=== PATIENT | male | born 1945 | race Caucasian/White ===

== ENCOUNTER 2019-03-14 08:08 | Inpatient (IN) | payer MEDICARE, OTHER ==
[2019-03-11 15:23] LABS: BASOPHILS # (AUTO) 0.1 (0.0-0.1); BASOPHILS % 1.3 % (0.0-1.0); EOSINOPHILS # (AUTO) 1.1 (0.0-0.4); EOSINOPHILS % 14.2 % (0.0-6.0); HEMATOCRIT 40.4 % (38.2-49.6); HEMOGLOBIN 13.9 g/dL (14.0-18.0); LYMPHOCYTES # (AUTO) 1.5 (1.0-3.2); LYMPHOCYTES % 20.5 % (18.0-39.1); MEAN CORPUSCULAR HEMOGLOBIN 30.2 pg (28-32); MEAN CORPUSCULAR HGB CONC 34.4 g/dL (31-35); MEAN CORPUSCULAR VOLUME 87.8 fL (81-99); MONOCYTES # (AUTO) 0.4 (0.2-0.8); MONOCYTES % 5.6 % (4.4-11.3); NEUTROPHILS # (AUTO) 4.3 (2.1-6.9); NEUTROPHILS % 58.1 % (38.7-80.0); PLATELET COUNT 232 x10e3/uL (140-360); RED CELL DISTRIBUTION WIDTH 11.9 % (11.7-14.4)
[2019-03-11 15:37] LABS: BLOOD UREA NITROGEN 12 mg/dL (7-26); BUN/CREATININE RATIO 12 (6-25); CALCIUM 9.4 mg/dL (8.4-10.2); CARBON DIOXIDE 22 mmol/L (22-29); CHLORIDE 104 mmol/L (98-107); CREATININE, SERUM 0.97 mg/dL (0.72-1.25); EST GLOMERULAR FILTRATION RATE > 60 ML/MIN (60-); GLUCOSE 82 mg/dL (74-118); SODIUM 138 mmol/L (136-145)
--- NOTE | 2019-03-11 15:56 | Diagnostic Imaging Report ---
EXAMINATION: CHEST 2 VIEWS INDICATION: Pre-operative COMPARISON: None FINDINGS: LINES/TUBES:None LUNGS:The lungs are hyperinflated. No focal consolidation or pulmonary edema. Scattered subcentimeter calcified granulomas. PLEURA:No pleural effusion or pneumothorax. MEDIASTINUM:The cardiomediastinal silhouette appears normal in size and shape. BONES/SOFT TISSUES:No acute osseous injury. ABDOMEN:No free air under the diaphragm. IMPRESSION: Hyperinflated lungs. No focal pneumonia or pulmonary edema. Signed by: Debi Fernández MD on 03/11/2019 3:53 PM
[~2019-03-14] VITALS: Ht 170.2 cm; Wt 54.4 kg
--- OUTSIDE RECORDS SUMMARY | 2019-03-14 08:11 | XMS REPORT ---
[facility] Address Unknown Phone Unavailable Care Team Providers Care Picture Framer Name Role Phone ZULMA, FANNY Unavailable Unavailable Payers Payer Name Policy Type Policy Number Effective Date Expiration Date Problems This patient has no known problems. Allergies, Adverse Reactions, Alerts Allergy Name Allergy Type Status Severity Reaction(s) Onset Date Inactive Date Treating Clinician Comments No Known Allergies DA Active U 2018-06-20 00:00:00 No Known Allergies DA Active U 2017-03-20 00:00:00 Medications This patient has no known medications. Encounters Start Date/Time End Date/Time Encounter Type Admission Type Attending Clinicians Care Facility Care Department Encounter ID 2018-09-05 13:29:45 2018-09-05 13:29:45 Outpatient [facility] [id number] 2018-09-03 01:34:52 2018-09-03 01:34:52 Emergency [facility] [id number] 2018-08-15 00:00:00 2018-08-15 00:00:00 Outpatient [facility] [id number] 2018-07-10 00:00:00 2018-07-10 00:00:00 Outpatient [facility] [id number] 2018-06-28 00:00:00 2018-06-28 00:00:00 Outpatient [facility] [id number] 2018-06-24 11:40:00 2018-06-24 11:40:00 Emergency [facility] [id number] Results Test Description Test Time Test Comments Text Results Atomic Results Result Comments CHEST 2 VIEWS 2019-03-11 15:53:00 [facility] [address] Patient Name: PATRICK CASIANO MR #: [id number] : 1945 Age/Sex: 73/M Req #: [id number] Adm Physician: Ordered by: FANNY MAYA MD Report #: [id number] Location: OR Room/Bed: Procedure: [id number] DX/CHEST 2 VIEWS Exam Date: 03/11/19 Exam Time: 1534 REPORT STATUS: Signed EXAMINATION: CHEST 2 VIEWS INDICATION: Pre-operative COMPARISON: None FINDINGS: LINES/TUBES:None LUNGS:The lungs are hyperinflated. No focal consolidation or pulmonary edema. Scattered subcentimeter calcified granulomas. PLEURA:No pleural effusion or pneumothorax. MEDIASTINUM:The cardiomediastinal silhouette appears normal in size and shape. BONES/SOFT TISSUES:No acute osseous injury. ABDOMEN:No free air under the diaphragm. IMPRESSION: Hyperinflated lungs. No focal pneumonia or pulmonary edema. Signed by: Gisselle Aviles MD on 03/11/2019 3:53 PM Dictated By: GISSELLE AVILES MD [id number] Transcribed By: NAHUN on 03/11/19 0469 COPY TO: FANNY MAYA MD URINALYSIS COMPLETE 2018-11-21 09:36:00 UA COLOR (test code=COLU) YELLOW YELLOW UA APPEARANCE (test code=APPU) TURBID CLEAR UA GLUCOSE DIPSTICK (test code=DGLUU) norm mg/dL NEGATIVE UA BILIRUBIN DIPSTICK (test code=BILU) NEGATIVE mg/dL NEGATIVE UA KETONE DIPSTICK (test code=KETU) neg mg/dL NEGATIVE UA SPECIFIC GRAVITY (test code=SGU) 1.015 1.001-1.035 UA BLOOD DIPSTICK (test code=MIKE) 250 (4+) Drew/uL NEGATIVE UA PH DIPSTICK (test code=LUIS) 7.0 5.0-8.0 UA PROTEIN DIPSTICK (test code=PROU) 100 (2+) mg/dL Neg-15 UA UROBILINIOGEN DIPSTICK (test code=URO) norm mg/dL 0.0-0.2 UA NITRITE DIPSTICK (test code=VILMA) NEGATIVE NEGATIVE UA LEUKOCYTE ESTERASE DIPSTICK (test code=LEUU) 500 Madelaine/uL (3+) uL NEGATIVE UA WBC (test code=WBCU) TNTC per HPF 0-5 UA RBC (test code=RBCU) 5-10 per HPF 0-5 UA EPITHELIAL CELLS (test code=EPIU) None seen per HPF Few UA BACTERIA (test code=BACU) LOADED per HPF NONE Urine Source? Clean CatchURINALYSIS [id number] 09:33:00* Test Item Value Reference Range Comments UA COLOR (test code=COLU) YELLOW YELLOW UA APPEARANCE (test code=APPU) TURBID CLEAR UA GLUCOSE DIPSTICK (test code=DGLUU) norm mg/dL NEGATIVE UA BILIRUBIN DIPSTICK (test code=BILU) NEGATIVE mg/dL NEGATIVE UA KETONE DIPSTICK (test code=KETU) neg mg/dL NEGATIVE UA SPECIFIC GRAVITY (test code=SGU) 1.015 1.001-1.035 UA BLOOD DIPSTICK (test code=MIKE) 250 (4+) Drew/uL NEGATIVE UA PH DIPSTICK (test code=LUIS) 7.0 5.0-8.0 UA PROTEIN DIPSTICK (test code=PROU) 100 (2+) mg/dL Neg-15 UA UROBILINIOGEN DIPSTICK (test code=URO) norm mg/dL 0.0-0.2 UA NITRITE DIPSTICK (test code=VILMA) NEGATIVE NEGATIVE UA LEUKOCYTE ESTERASE DIPSTICK (test code=LEUU) 500 Madelaine/uL (3+) uL NEGATIVE UA WBC (test code=WBCU) per HPF 0-5 UA RBC (test code=RBCU) per HPF 0-5 UA EPITHELIAL CELLS (test code=EPIU) per HPF Few UA BACTERIA (test code=BACU) per HPF NONE Urine Source? Clean CatchURINALYSIS [id number] 18:11:00* Test Item Value Reference Range Comments UA COLOR (test code=COLU) Light-Yellow YELLOW UA APPEARANCE (test code=APPU) Cloudy CLEAR UA GLUCOSE DIPSTICK (test code=DGLUU) NEGATIVE mg/dL NEGATIVE UA BILIRUBIN DIPSTICK (test code=BILU) NEGATIVE mg/dL NEGATIVE UA KETONE DIPSTICK (test code=KETU) TRACE mg/dL NEGATIVE UA SPECIFIC GRAVITY (test code=SGU) 1.014 1.001-1.035 UA BLOOD DIPSTICK (test code=MIKE) 0.2 mg/dL (2+) mg/dL NEGATIVE UA PH DIPSTICK (test code=LUIS) 6.0 5.0-8.0 UA PROTEIN DIPSTICK (test code=PROU) 10 (Trace) mg/dL NEGATIVE UA UROBILINIOGEN DIPSTICK (test code=URO) Normal mg/dL NEGATIVE UA NITRITE DIPSTICK (test code=VILMA) POSITIVE NEGATIVE UA LEUKOCYTE ESTERASE W REFLEX (test code=LEUUR) 500 Madelaine/uL (3+) Madelaine/uL NEGATIVE UA WBC (test code=WBCU) 101-150 per HPF 0-5 UA RBC (test code=RBCU) 21-50 #/HPF 0-5 UA WBC CLUMPS (test code=WBCUCL) >10 /HPF NONE UA EPITHELIAL CELLS (test code=EPIU) FEW per HPF FEW UA BACTERIA (test code=BACU) MODERATE #/HPF NONE UA MUCUS (test code=MUCU) FEW #/LPF FEW Urine Source? Clean CatchBASIC METABOLIC [id number] 15:36:00* Test Item Value Reference Range Comments SODIUM (test code=NA) 139 mmol/L 136-145 POTASSIUM (test code=K) 4.2 mmol/L 3.5-5.1 CHLORIDE (test code=CL) 105.0 mmol/L 98-107 CARBON DIOXIDE (test code=CO2) 25.0 mmol/L 21-32 ANION GAP (test code=GAP) 13.2 10-20 GLUCOSE (test code=GLU) 78 mg/dL 74-106 BLOOD UREA NITROGEN (test code=BUN) 19 mg/dL 7-18 GLOMERULAR FILTRATION RATE (test code=GFR) > 60 mL/min >=60 Estimated GFR by using Modified MDRD formula.Chronic kidney disease is defined as either kidney damageor GFR <60 mL/min/1.73 m2 for >3 months. CREATININE (test code=CREAT) 1.00 mg/dL 0.7-1.3 BUN/CREATININE RATIO (test code=BUN/CREA) 18.1 10-20 CALCIUM (test code=CA) 9.5 mg/dL 8.5-10.1 BASIC METABOLIC [id number] 15:20:00* Test Item Value Reference Range Comments SODIUM (test code=NA) 139 mmol/L 136-145 POTASSIUM (test code=K) 4.2 mmol/L 3.5-5.1 CHLORIDE (test code=CL) 105.0 mmol/L 98-107 CARBON DIOXIDE (test code=CO2) mmol/L 21-32 ANION GAP (test code=GAP) 10-20 GLUCOSE (test code=GLU) mg/dL 74-106 BLOOD UREA NITROGEN (test code=BUN) mg/dL 7-18 GLOMERULAR FILTRATION RATE (test code=GFR) mL/min >=60 CREATININE (test code=CREAT) mg/dL 0.7-1.3 BUN/CREATININE RATIO (test code=BUN/CREA) 10-20 CALCIUM (test code=CA) mg/dL 8.5-10.1 CBC W/O [id number] 15:06:00* Test Item Value Reference Range Comments WHITE BLOOD CELL (test code=WBC) 6.1 K/mm3 4.5-12.5 RED BLOOD CELL (test code=RBC) 4.40 mill/mm3 4.0-5.8 HEMOGLOBIN (test code=HGB) 13.4 gram/dL 13.0-17.5 HEMATOCRIT (test code=HCT) 39.9 % 42.0-52.0 MEAN CELL VOLUME (test code=MCV) 90.7 fL 80-98 MEAN CELL HGB (test code=MCH) 30.5 picogram 27.0-33.0 MEAN CELL HGB CONCETRATION (test code=MCHC) 33.6 gram/dL 33.0-36.0 RED CELL DISTRIBUTION WIDTH (test code=RDW) 13.2 % 11.6-16.2 PLATELET COUNT (test code=PLT) 174 K/mm3 150-450 MEAN PLATELET VOLUME (test code=MPV) 9.6 fL 6.7-11.0 CBC W/O [id number] 15:04:00* Test Item Value Reference Range Comments WHITE BLOOD CELL (test code=WBC) K/mm3 4.5-12.5 RED BLOOD CELL (test code=RBC) mill/mm3 4.0-5.8 HEMOGLOBIN (test code=HGB) 13.4 gram/dL 13.0-17.5 HEMATOCRIT (test code=HCT) % 42.0-52.0 MEAN CELL VOLUME (test code=MCV) fL 80-98 MEAN CELL HGB (test code=MCH) picogram 27.0-33.0 MEAN CELL HGB CONCETRATION (test code=MCHC) gram/dL 33.0-36.0 RED CELL DISTRIBUTION WIDTH (test code=RDW) % 11.6-16.2 PLATELET COUNT (test code=PLT) K/mm3 150-450 MEAN PLATELET VOLUME (test code=MPV) fL 6.7-11.0 BASIC METABOLIC [id number] 09:07:00* Test Item Value Reference Range Comments SODIUM (test code=NA) 140 mmol/L 136-145 POTASSIUM (test code=K) 3.3 mmol/L 3.5-5.1 CHLORIDE (test code=CL) 107.0 mmol/L 98-107 CARBON DIOXIDE (test code=CO2) 25.0 mmol/L 21-32 ANION GAP (test code=GAP) 11.3 10-20 GLUCOSE (test code=GLU) 71 mg/dL 74-106 BLOOD UREA NITROGEN (test code=BUN) 14 mg/dL 7-18 GLOMERULAR FILTRATION RATE (test code=GFR) > 60 mL/min >=60 Estimated GFR by using Modified MDRD formula.Chronic kidney disease is defined as either kidney damageor GFR <60 mL/min/1.73 m2 for >3 months. CREATININE (test code=CREAT) 0.80 mg/dL 0.7-1.3 BUN/CREATININE RATIO (test code=BUN/CREA) 16.5 10-20 CALCIUM (test code=CA) 8.5 mg/dL 8.5-10.1 BASIC METABOLIC [id number] 08:56:00* Test Item Value Reference Range Comments SODIUM (test code=NA) 140 mmol/L 136-145 POTASSIUM (test code=K) 3.3 mmol/L 3.5-5.1 CHLORIDE (test code=CL) 107.0 mmol/L 98-107 CARBON DIOXIDE (test code=CO2) mmol/L 21-32 ANION GAP (test code=GAP) 10-20 GLUCOSE (test code=GLU) mg/dL 74-106 BLOOD UREA NITROGEN (test code=BUN) mg/dL 7-18 GLOMERULAR FILTRATION RATE (test code=GFR) mL/min >=60 CREATININE (test code=CREAT) mg/dL 0.7-1.3 BUN/CREATININE RATIO (test code=BUN/CREA) 10-20 CALCIUM (test code=CA) mg/dL 8.5-10.1 CBC W/AUTO [id number] 08:16:00* Test Item Value Reference Range Comments WHITE BLOOD CELL (test code=WBC) 6.9 K/mm3 4.5-12.5 RED BLOOD CELL (test code=RBC) 4.09 mill/mm3 4.0-5.8 HEMOGLOBIN (test code=HGB) 12.1 gram/dL 13.0-17.5 HEMATOCRIT (test code=HCT) 35.7 % 42.0-52.0 MEAN CELL VOLUME (test code=MCV) 87.3 fL 80-98 MEAN CELL HGB (test code=MCH) 29.6 picogram 27.0-33.0 MEAN CELL HGB CONCETRATION (test code=MCHC) 33.9 gram/dL 33.0-36.0 RED CELL DISTRIBUTION WIDTH (test code=RDW) 11.9 % 11.6-16.2 RED CELL DISTRIBUTION WIDTH SD (test code=RDW-SD) 38.5 fL 37.0-51.0 PLATELET COUNT (test code=PLT) 230 K/mm3 150-450 MEAN PLATELET VOLUME (test code=MPV) 9.4 fL 6.7-11.0 NEUTROPHIL % (test code=NT%) 66.0 % 39.0-69.0 IMMATURE GRANULOCYTE % (test code=IG%) 1.3 % 0.0-5.0 LYMPHOCYTE % (test code=LY%) 14.6 % 25.0-55.0 MONOCYTE % (test code=MO%) 13.4 % 0.0-10.0 EOSINOPHIL % (test code=EO%) 4.6 % 0.0-5.0 BASOPHIL % (test code=BA%) 0.1 % 0.0-1.0 NUCLEATED RBC % (test code=NRBC%) 0.0 % 0-0 NEUTROPHIL # (test code=NT#) 4.56 K/mm3 1.8-7.7 IMMATURE GRANULOCYTE # (test code=IG#) 0.09 x10 3/uL 0-0.03 LYMPHOCYTE # (test code=LY#) 1.01 K/mm3 1.0-5.0 MONOCYTE # (test code=MO#) 0.93 K/mm3 0-0.8 EOSINOPHIL # (test code=EO#) 0.32 K/mm3 0.0-0.5 BASOPHIL # (test code=BA#) 0.01 K/mm3 0.0-0.2 NUCLEATED RBC # (test code=NRBC#) 0.00 K/mm3 0.0-0.1 MANUAL DIFF REQUIRED (test code=MDIFF) NO B-TYPE NATRIURETIC [id number] 09:19:00* Test Item Value Reference Range Comments B-TYPE NATRIURETIC PEPTIDE (test code=BNP) 121.86 pgram/mL 0-100 BASIC METABOLIC [id number] 08:05:00* Test Item Value Reference Range Comments SODIUM (test code=NA) 141 mmol/L 136-145 POTASSIUM (test code=K) 3.5 mmol/L 3.5-5.1 CHLORIDE (test code=CL) 110.0 mmol/L 98-107 CARBON DIOXIDE (test code=CO2) 22.0 mmol/L 21-32 ANION GAP (test code=GAP) 12.5 10-20 GLUCOSE (test code=GLU) 65 mg/dL 74-106 BLOOD UREA NITROGEN (test code=BUN) 22 mg/dL 7-18 GLOMERULAR FILTRATION RATE (test code=GFR) 54 mL/min >=60 Estimated GFR by using Modified MDRD formula.Chronic kidney disease is defined as either kidney damageor GFR <60 mL/min/1.73 m2 for >3 months. CREATININE (test code=CREAT) 1.30 mg/dL 0.7-1.3 BUN/CREATININE RATIO (test code=BUN/CREA) 17.3 10-20 CALCIUM (test code=CA) 8.8 mg/dL 8.5-10.1 BASIC METABOLIC [id number] 07:51:00* Test Item Value Reference Range Comments SODIUM (test code=NA) 141 mmol/L 136-145 POTASSIUM (test code=K) 3.5 mmol/L 3.5-5.1 CHLORIDE (test code=CL) 110.0 mmol/L 98-107 CARBON DIOXIDE (test code=CO2) mmol/L 21-32 ANION GAP (test code=GAP) 10-20 GLUCOSE (test code=GLU) mg/dL 74-106 BLOOD UREA NITROGEN (test code=BUN) mg/dL 7-18 GLOMERULAR FILTRATION RATE (test code=GFR) mL/min >=60 CREATININE (test code=CREAT) mg/dL 0.7-1.3 BUN/CREATININE RATIO (test code=BUN/CREA) 10-20 CALCIUM (test code=CA) mg/dL 8.5-10.1 CBC W/AUTO [id number] 07:38:00* Test Item Value Reference Range Comments WHITE BLOOD CELL (test code=WBC) 8.8 K/mm3 4.5-12.5 RED BLOOD CELL (test code=RBC) 4.35 mill/mm3 4.0-5.8 HEMOGLOBIN (test code=HGB) 13.0 gram/dL 13.0-17.5 HEMATOCRIT (test code=HCT) 38.3 % 42.0-52.0 MEAN CELL VOLUME (test code=MCV) 88.0 fL 80-98 MEAN CELL HGB (test code=MCH) 29.9 picogram 27.0-33.0 MEAN CELL HGB CONCETRATION (test code=MCHC) 33.9 gram/dL 33.0-36.0 RED CELL DISTRIBUTION WIDTH (test code=RDW) 12.2 % 11.6-16.2 RED CELL DISTRIBUTION WIDTH SD (test code=RDW-SD) 39.8 fL 37.0-51.0 PLATELET COUNT (test code=PLT) 218 K/mm3 150-450 MEAN PLATELET VOLUME (test code=MPV) 9.5 fL 6.7-11.0 NEUTROPHIL % (test code=NT%) 76.7 % 39.0-69.0 IMMATURE GRANULOCYTE % (test code=IG%) 1.0 % 0.0-5.0 LYMPHOCYTE % (test code=LY%) 10.7 % 25.0-55.0 MONOCYTE % (test code=MO%) 9.0 % 0.0-10.0 EOSINOPHIL % (test code=EO%) 2.3 % 0.0-5.0 BASOPHIL % (test code=BA%) 0.3 % 0.0-1.0 NUCLEATED RBC % (test code=NRBC%) 0.0 % 0-0 NEUTROPHIL # (test code=NT#) 6.76 K/mm3 1.8-7.7 IMMATURE GRANULOCYTE # (test code=IG#) 0.09 x10 3/uL 0-0.03 LYMPHOCYTE # (test code=LY#) 0.94 K/mm3 1.0-5.0 MONOCYTE # (test code=MO#) 0.79 K/mm3 0-0.8 EOSINOPHIL # (test code=EO#) 0.20 K/mm3 0.0-0.5 BASOPHIL # (test code=BA#) 0.03 K/mm3 0.0-0.2 NUCLEATED RBC # (test code=NRBC#) 0.00 K/mm3 0.0-0.1 CBC W/AUTO [id number] 07:32:00* Test Item Value Reference Range Comments WHITE BLOOD CELL (test code=WBC) K/mm3 4.5-12.5 RED BLOOD CELL (test code=RBC) mill/mm3 4.0-5.8 HEMOGLOBIN (test code=HGB) 13.0 gram/dL 13.0-17.5 HEMATOCRIT (test code=HCT) % 42.0-52.0 MEAN CELL VOLUME (test code=MCV) fL 80-98 MEAN CELL HGB (test code=MCH) picogram 27.0-33.0 MEAN CELL HGB CONCETRATION (test code=MCHC) gram/dL 33.0-36.0 RED CELL DISTRIBUTION WIDTH (test code=RDW) % 11.6-16.2 RED CELL DISTRIBUTION WIDTH SD (test code=RDW-SD) fL 37.0-51.0 PLATELET COUNT (test code=PLT) K/mm3 150-450 MEAN PLATELET VOLUME (test code=MPV) fL 6.7-11.0 NEUTROPHIL % (test code=NT%) % 39.0-69.0 IMMATURE GRANULOCYTE % (test code=IG%) % 0.0-5.0 LYMPHOCYTE % (test code=LY%) % 25.0-55.0 MONOCYTE % (test code=MO%) % 0.0-10.0 EOSINOPHIL % (test code=EO%) % 0.0-5.0 BASOPHIL % (test code=BA%) % 0.0-1.0 NEUTROPHIL # (test code=NT#) K/mm3 1.8-7.7 LYMPHOCYTE # (test code=LY#) K/mm3 1.0-5.0 MONOCYTE # (test code=MO#) K/mm3 0-0.8 EOSINOPHIL # (test code=EO#) K/mm3 0.0-0.5 BASOPHIL # (test code=BA#) K/mm3 0.0-0.2 - US RETRO [id number] 14:34:00 Name: PATRICK CASIANO [facility] : 1945 Age/S: 72 [facility] [address] [facility] Unit #: [id number] Loc: [place] [address] Phys: Gemma Jensen Acct: [id number] Dis Date: Status: ADM IN PHONE #: [phone] Exam Date: 09/07/2018 1400 FAX #: [phone] Reason: renal failure EXAMS: CPT CODE: [id number] US RETRO LTD [id number] REASON FOR EXAM: renal failure EXAM ORDER DATE: 09/07/2018 1:00 PM Attending Angelo: Gemma Jensen PROCEDURE: - US RETRO LTD FINDINGS: The right kidney measures 9.6 x 4.7 cm. The cross-sectional thickness of the right renal cortex measured 1.5 cm. The left kidney measures 9.6 x 5.2 cm. The cross- sectional thickness of the left renal cortex measured 1.4 cm. There is no evidence of hydronephrosis. There is no evidence of nephrolithiasis. The urinary bladder is contracted with a Feliciano catheter IMPRESSION: 1.7 cm solid lesion in the midpole of the left kidney at 1434 Reported and signed by: Ricky Arnett M.D. CC: Gemma Jensen; Radha Ag MD Technologist: ANNABELLA LUU RT(R),RDMS Trnscb Date/Time: 09/07/2018 (1432) [email or web address] Orig Print D/T: S: 09/07/2018 (7287) Probe: PAGE 1 Signed Report - CT ABD PELVIS W/O [id number] 03:31:00 Name: PATRICK CASIANO [facility] : 1945 Age/S: 72 / M [address] [facility] Unit #: [id number] Loc: [place] [address] Phys: Ehsan Green MD Acct: [id number] Dis Date: Status: ADM IN PHONE #: [phone] Exam Date: 09/07/2018 0240 FAX #: [phone] Reason: renal failure, urinary retention - replaced fol EXAMS: CPT CODE: [id number] CT ABD PELVIS W/O CONT [id number] AFTER HOURS SERVICE ON: 09/07/2018 3:[address] Scan of the Abdomen and Pelvis Without Contrast Location Code M12 History: renal failure, urinary retention - replaced feliciano Technique: Axial and reconstructed coronal scans were performed on a helical scanner pre oral and IV contrast. Study is limited secondary to lack of oral and IV contrast. One or more of the following dose reduction techniques were used: Automated exposure control, adjustment of the mA and/or kV according to patient si ze, and/or utilization of iterative reconstruction technique. Findings: Study is limited without IV contrast. Liver, gallbla dder, pancreas and spleen are within normal limits. Adrenal glands are th ickened, likely hyperplastic. There is no nephrolithiasis or hydronephros is in the right kidney. In the left kidney, there is mild edema, pe rinephric stranding and hydroureter but no renal or ureteral calculi are s een. There is a Feliciano catheter in the bladder. Few air pockets are seen in the bladder lumen. The bladder is mostly decompressed. Multiple hyper densities are seen layering in the posterior bladder adjacent the right UV J. These were not present on 06/14/2018. A consistent with recent contras t injection or possibly calcified hemorrhagic fluid. Copious amount of air and stool present in the colon. The rectum is dilated rossana uring 7.6 cm containing large amount of air. These findings are consisten t with colonic ileus. The appendix is unremarkable. There is no small geni wel structure or free air. IMPRESSION: Mild le ft renal edema and hydroureter without evidence of a ureteral calculus. Findings may be consistent with a recently passed calculus or possibly pyelonephritis. Multiple layering calcifications in the driveway attendant ior bladder. Differential diagnosis includes recent contrast injection versus calcified hemorrhagic fluid. PAGE 1 Si gned Report (CONTINUED) Name: PATRICK CASIANO [facility] : 1945 Age/S: 72 / M [address] [facility] Unit #: [id number] Loc: [place] [address] Phys: Ehsan Green MD Acct: [id number] Dis Date: Status: ADM IN PHONE #: [phone] Exam Date: 09/07/2018 0240 FAX #: [phone] Reason: renal failure, urinary retention - replaced fol EXAMS: CPT CODE: [id number] CT ABD PELVIS W/O CONT [id number] <Continued> Copious amount of air and stool in the colon and a dilated rectum. These findings may be consistent with colonic ileus. No free or inflammatory changes. at 0331 Reported and signed by: Taryn Lindquist M.D. CC: Ehsan Green MD Technologist:Stewart Car RT(R)(CT) CTDI: DLP: Trnscb Date/Time: 09/07/2018 (033) [email or web address] Orig Print D/T: S: 09/07/2018 (0334) PAGE 2 Signed Report LACTIC [id number] 02:46:00* Test Item Value Reference Range Comments LACTIC ACID (test code=LACT) 1.3 mmol/L 0.4-1.9 PROCALCITONIN (PCT)2018-09-07 02:46:00* Test Item Value Reference Range Comments PROCALCITONIN (PCT) (test code=PROCAL) 0.26 ng/ml Concentration Interpretation (ng/mL) <0.51 Sepsis is not likely. Local bacterial infection is possible. (LOW RISK for progression to Sepsis) 0.51 - 2.00 Sepsis is possible, but other conditions are known to elevate PCT as well. (MODERATE RISK for progression to Sepsis) > 2.00 Sepsis is likely, unless other causes are known. (HIGH RISK for progression to Severe Sepsis or Septic Shock) 10.00 High likelihood of Severe Sepsis or Septic or higher Shock. *Increased PCT levels may not always be related to systemic bacterial infection.*Low PCT levels do not automatically exclude the presence of bacterial infection.*All results should be interpreted taking into account the patients history. URINALYSIS [id number] 02:42:00* Test Item Value Reference Range Comments UA COLOR (test code=COLU) YELLOW YELLOW UA APPEARANCE (test code=APPU) TURBID CLEAR UA GLUCOSE DIPSTICK (test code=DGLUU) NEGATIVE mg/dL NEGATIVE UA BILIRUBIN DIPSTICK (test code=BILU) NEGATIVE NEGATIVE UA KETONE DIPSTICK (test code=KETU) 10 (1+) mg/dL NEGATIVE UA SPECIFIC GRAVITY (test code=SGU) 1.015 1.001-1.035 UA BLOOD DIPSTICK (test code=MIKE) 250 (4+) NEGATIVE UA PH DIPSTICK (test code=LUIS) 7.5 5.0-8.0 UA PROTEIN DIPSTICK (test code=PROU) 100 (2+) mg/dL Neg-15 UA UROBILINIOGEN DIPSTICK (test code=URO) NORMAL mg/dL 0.0-0.2 UA NITRITE DIPSTICK (test code=VILMA) NEGATIVE NEGATIVE UA LEUKOCYTE ESTERASE W REFLEX (test code=LEUUR) 500 Madelaine/uL (3+) NEGATIVE UA WBC (test code=WBCU) >200 per HPF 0-5 UA RBC (test code=RBCU) 3-5 per HPF 0-5 UA EPITHELIAL CELLS (test code=EPIU) Few (2-5/hpf) per HPF Few UA BACTERIA (test code=BACU) TRACE per HPF NONE UA MUCUS (test code=MUCU) FEW per LPF NONE-FEW Urine Source? CatheterURINALYSIS [id number] 02:28:00* Test Item Value Reference Range Comments UA COLOR (test code=COLU) YELLOW YELLOW UA APPEARANCE (test code=APPU) TURBID CLEAR UA GLUCOSE DIPSTICK (test code=DGLUU) NEGATIVE mg/dL NEGATIVE UA BILIRUBIN DIPSTICK (test code=BILU) NEGATIVE NEGATIVE UA KETONE DIPSTICK (test code=KETU) 10 (1+) mg/dL NEGATIVE UA SPECIFIC GRAVITY (test code=SGU) 1.015 1.001-1.035 UA BLOOD DIPSTICK (test code=MIKE) 250 (4+) NEGATIVE UA PH DIPSTICK (test code=LUIS) 7.5 5.0-8.0 UA PROTEIN DIPSTICK (test code=PROU) 100 (2+) mg/dL Neg-15 UA UROBILINIOGEN DIPSTICK (test code=URO) NORMAL mg/dL 0.0-0.2 UA NITRITE DIPSTICK (test code=VILMA) NEGATIVE NEGATIVE UA LEUKOCYTE ESTERASE W REFLEX (test code=LEUUR) 500 Madelaine/uL (3+) NEGATIVE UA WBC (test code=WBCU) per HPF 0-5 UA RBC (test code=RBCU) per HPF 0-5 UA EPITHELIAL CELLS (test code=EPIU) per HPF Few UA BACTERIA (test code=BACU) per HPF NONE Urine Source? CatheterARTERIAL BLOOD [id number] 01:59:00* Test Item Value Reference Range Comments ARTERIAL BLOOD GAS PH (test code=PHA) 7.43 7.35-7.45 ARTERIAL BLOOD GAS PCO2 (test code=PCO2A) 22.7 mm Hg 35-45 Results called to and read back by Kay Laguerre :58 09/07/2018; by [facility] ARTERIAL BLOOD GAS PO2 (test code=PO2A) 103.8 mmHg 80-100 BICARBONATE TOTAL HCO3 (test code=HCO3) 14.7 mmol/L 23.0-27.0 BASE EXCESS (test code=MITCHELL) -7.5 mmol/L -3.0-5.0 Results called to and read back by Kay Laguerre :58 09/07/2018; by [facility] ABG O2 SATURATION (test code=SATA) 97.7 % 90.0-98.0 ABG TYPE (test code=TYPEA) Arterial FIO2 (test code=FIO2A) 21.0 ABG TEMPERATURE (test code=TEMPA) 37.0 Celsius ABG SITE (test code=SITEA) Rt RADIAL ARTERY SODIUM (test code=NA/ABG) 130.5 mEq/L 135-148 POTASSIUM (test code=K/ABG) 3.3 mEq/L 3.5-4.5 CHLORIDE (test code=CL/ABG) 104 mEq/L 98-106 GLUCOSE (test code=GLU/ABG) 100 mg/dL 74-99 HEMATOCRIT (test code=HCT/ABG) 41 % 42-52 IONIZED CALCIUM (test code=CAIABG) 1.16 mmol/L 1.1-1.37 TOTAL HGB (test code=THB) 13.9 gram/dL 13.0-17.5 HGB O2 SAT (test code=HBOSAT) 95.2 % 94.00-98.00 CARBOXYHEMOGLOBIN (test code=HOHGBT) 1.9 %totalHg 0.5-1.5 METHEMOGLOBIN (test code=METHGB) 0.7 % 0.0-1.50 O2 CONTENT (test code=O2CT) 18.7 % vol 18.0-22.0 A-A GRADIENT (test code=AAGRADE) 18.7 mm Hg BASIC METABOLIC [id number] 01:37:00* Test Item Value Reference Range Comments SODIUM (test code=NA) 133 mmol/L 136-145 POTASSIUM (test code=K) 3.7 mmol/L 3.5-5.1 CHLORIDE (test code=CL) 101.0 mmol/L 98-107 CARBON DIOXIDE (test code=CO2) 19.0 mmol/L 21-32 ANION GAP (test code=GAP) 16.7 10-20 GLUCOSE (test code=GLU) 98 mg/dL 74-106 BLOOD UREA NITROGEN (test code=BUN) 59 mg/dL 7-18 GLOMERULAR FILTRATION RATE (test code=GFR) 8 mL/min >=60 Estimated GFR by using Modified MDRD formula.Chronic kidney disease is defined as either kidney damageor GFR <60 mL/min/1.73 m2 for >3 months. CREATININE (test code=CREAT) 7.10 mg/dL 0.7-1.3 BUN/CREATININE RATIO (test code=BUN/CREA) 8.3 10-20 CALCIUM (test code=CA) 9.1 mg/dL 8.5-10.1 CBC W/MANUAL [id number] 01:33:00* Test Item Value Reference Range Comments WHITE BLOOD CELL (test code=WBC) 13.9 K/mm3 4.5-12.5 RED BLOOD CELL (test code=RBC) 4.45 mill/mm3 4.0-5.8 HEMOGLOBIN (test code=HGB) 13.4 gram/dL 13.0-17.5 HEMATOCRIT (test code=HCT) 38.8 % 42.0-52.0 MEAN CELL VOLUME (test code=MCV) 87.2 fL 80-98 MEAN CELL HGB (test code=MCH) 30.1 picogram 27.0-33.0 MEAN CELL HGB CONCETRATION (test code=MCHC) 34.5 gram/dL 33.0-36.0 RED CELL DISTRIBUTION WIDTH (test code=RDW) 12.1 % 11.6-16.2 RED CELL DISTRIBUTION WIDTH SD (test code=RDW-SD) 39.5 fL 37.0-51.0 PLATELET COUNT (test code=PLT) 185 K/mm3 150-450 MEAN PLATELET VOLUME (test code=MPV) 10.1 fL 6.7-11.0 IMMATURE GRANULOCYTE % (test code=IG%) 0.5 % 0.0-5.0 NUCLEATED RBC % (test code=NRBC%) 0.0 % 0-0 NEUTROPHIL # (test code=NT#) 12.51 K/mm3 1.8-7.7 IMMATURE GRANULOCYTE # (test code=IG#) 0.07 x10 3/uL 0-0.03 LYMPHOCYTE # (test code=LY#) 0.40 K/mm3 1.0-5.0 MONOCYTE # (test code=MO#) 0.92 K/mm3 0-0.8 EOSINOPHIL # (test code=EO#) 0.01 K/mm3 0.0-0.5 BASOPHIL # (test code=BA#) 0.02 K/mm3 0.0-0.2 NUCLEATED RBC # (test code=NRBC#) 0.00 K/mm3 0.0-0.1 MANUAL DIFF REQUIRED (test code=MDIFF) YES STAIN ACCEPTABILITY (test code=STN ACCEPTABLE) STAIN ACCEPTABLE TOTAL CELLS COUNTED (test code=TCC) 115 #CELLS SEGMENTED NEUTROPHILS (test code=SEG) 90.4 % 39-69 BAND NEUTROPHIL (test code=BAND) 1.8 % 0-10 LYMPHOCYTE (test code=LYMPH) 5.2 % 25-55 REACTIVE LYMPH (test code=RELYMPH) 0 % MONOCYTE (test code=MON) 2.6 % 0-10 EOSINOPHIL (test code=EOS) 0 % 0.0-5.0 BASOPHIL (test code=BASO) 0 % 0-1.0 METAMYELOCYTE (test code=META) 0 % 0-0 MYELOCYTE (test code=MYELO) 0 % 0.0-0.0 PROMYELOCYTE (test code=PROM) 0 % 0-0 POIKILOCYTOSIS (test code=POIK) 2+ CRENATED CELLS (test code=CREN) 2+ PLATELET ESTIMATE (test code=PLTEST) ADEQUATE PLATELET MORPHOLOGY (test code=PLTMORPH) NORMAL IMMATURE FORMS (test code=IMMAT) 0 % 0-0 BASIC METABOLIC [id number] 01:17:00* Test Item Value Reference Range Comments SODIUM (test code=NA) 133 mmol/L 136-145 POTASSIUM (test code=K) 3.7 mmol/L 3.5-5.1 CHLORIDE (test code=CL) 101.0 mmol/L 98-107 CARBON DIOXIDE (test code=CO2) mmol/L 21-32 ANION GAP (test code=GAP) 10-20 GLUCOSE (test code=GLU) mg/dL 74-106 BLOOD UREA NITROGEN (test code=BUN) mg/dL 7-18 GLOMERULAR FILTRATION RATE (test code=GFR) mL/min >=60 CREATININE (test code=CREAT) mg/dL 0.7-1.3 BUN/CREATININE RATIO (test code=BUN/CREA) 10-20 CALCIUM (test code=CA) mg/dL 8.5-10.1 CBC W/MANUAL [id number] 01:07:00* Test Item Value Reference Range Comments WHITE BLOOD CELL (test code=WBC) 13.9 K/mm3 4.5-12.5 RED BLOOD CELL (test code=RBC) 4.45 mill/mm3 4.0-5.8 HEMOGLOBIN (test code=HGB) 13.4 gram/dL 13.0-17.5 HEMATOCRIT (test code=HCT) 38.8 % 42.0-52.0 MEAN CELL VOLUME (test code=MCV) 87.2 fL 80-98 MEAN CELL HGB (test code=MCH) 30.1 picogram 27.0-33.0 MEAN CELL HGB CONCETRATION (test code=MCHC) 34.5 gram/dL 33.0-36.0 RED CELL DISTRIBUTION WIDTH (test code=RDW) 12.1 % 11.6-16.2 RED CELL DISTRIBUTION WIDTH SD (test code=RDW-SD) 39.5 fL 37.0-51.0 PLATELET COUNT (test code=PLT) 185 K/mm3 150-450 MEAN PLATELET VOLUME (test code=MPV) 10.1 fL 6.7-11.0 IMMATURE GRANULOCYTE % (test code=IG%) 0.5 % 0.0-5.0 NUCLEATED RBC % (test code=NRBC%) 0.0 % 0-0 NEUTROPHIL # (test code=NT#) 12.51 K/mm3 1.8-7.7 IMMATURE GRANULOCYTE # (test code=IG#) 0.07 x10 3/uL 0-0.03 LYMPHOCYTE # (test code=LY#) 0.40 K/mm3 1.0-5.0 MONOCYTE # (test code=MO#) 0.92 K/mm3 0-0.8 EOSINOPHIL # (test code=EO#) 0.01 K/mm3 0.0-0.5 BASOPHIL # (test code=BA#) 0.02 K/mm3 0.0-0.2 NUCLEATED RBC # (test code=NRBC#) 0.00 K/mm3 0.0-0.1 MANUAL DIFF REQUIRED (test code=MDIFF) YES STAIN ACCEPTABILITY (test code=STN ACCEPTABLE) TOTAL CELLS COUNTED (test code=TCC) #CELLS SEGMENTED NEUTROPHILS (test code=SEG) % 39-69 LYMPHOCYTE (test code=LYMPH) % 25-55 MONOCYTE (test code=MON) % 0-10 MORPHOLOGY COMMENT (test code=MOC) PLATELET ESTIMATE (test code=PLTEST) PLATELET MORPHOLOGY (test code=PLTMORPH) CBC W/MANUAL [id number] 01:05:00* Test Item Value Reference Range Comments WHITE BLOOD CELL (test code=WBC) 13.9 K/mm3 4.5-12.5 RED BLOOD CELL (test code=RBC) 4.45 mill/mm3 4.0-5.8 HEMOGLOBIN (test code=HGB) 13.4 gram/dL 13.0-17.5 HEMATOCRIT (test code=HCT) 38.8 % 42.0-52.0 MEAN CELL VOLUME (test code=MCV) 87.2 fL 80-98 MEAN CELL HGB (test code=MCH) 30.1 picogram 27.0-33.0 MEAN CELL HGB CONCETRATION (test code=MCHC) 34.5 gram/dL 33.0-36.0 RED CELL DISTRIBUTION WIDTH (test code=RDW) 12.1 % 11.6-16.2 RED CELL DISTRIBUTION WIDTH SD (test code=RDW-SD) 39.5 fL 37.0-51.0 PLATELET COUNT (test code=PLT) 185 K/mm3 150-450 MEAN PLATELET VOLUME (test code=MPV) 10.1 fL 6.7-11.0 IMMATURE GRANULOCYTE % (test code=IG%) 0.5 % 0.0-5.0 NUCLEATED RBC % (test code=NRBC%) 0.0 % 0-0 NEUTROPHIL # (test code=NT#) 12.51 K/mm3 1.8-7.7 IMMATURE GRANULOCYTE # (test code=IG#) 0.07 x10 3/uL 0-0.03 LYMPHOCYTE # (test code=LY#) 0.40 K/mm3 1.0-5.0 MONOCYTE # (test code=MO#) 0.92 K/mm3 0-0.8 EOSINOPHIL # (test code=EO#) 0.01 K/mm3 0.0-0.5 BASOPHIL # (test code=BA#) 0.02 K/mm3 0.0-0.2 NUCLEATED RBC # (test code=NRBC#) 0.00 K/mm3 0.0-0.1 MANUAL DIFF REQUIRED (test code=MDIFF) YES STAIN ACCEPTABILITY (test code=STN ACCEPTABLE) TOTAL CELLS COUNTED (test code=TCC) #CELLS SEGMENTED NEUTROPHILS (test code=SEG) % 39-69 LYMPHOCYTE (test code=LYMPH) % 25-55 MONOCYTE (test code=MON) % 0-10 EOSINOPHIL (test code=EOS) % 0.0-5.0 CABOT RINGS (test code=CAB) MORPHOLOGY COMMENT (test code=MOC) PLATELET ESTIMATE (test code=PLTEST) PLATELET MORPHOLOGY (test code=PLTMORPH) CBC W/MANUAL [id number] 01:05:00* Test Item Value Reference Range Comments WHITE BLOOD CELL (test code=WBC) 13.9 K/mm3 4.5-12.5 RED BLOOD CELL (test code=RBC) 4.45 mill/mm3 4.0-5.8 HEMOGLOBIN (test code=HGB) 13.4 gram/dL 13.0-17.5 HEMATOCRIT (test code=HCT) 38.8 % 42.0-52.0 MEAN CELL VOLUME (test code=MCV) 87.2 fL 80-98 MEAN CELL HGB (test code=MCH) 30.1 picogram 27.0-33.0 MEAN CELL HGB CONCETRATION (test code=MCHC) 34.5 gram/dL 33.0-36.0 RED CELL DISTRIBUTION WIDTH (test code=RDW) 12.1 % 11.6-16.2 RED CELL DISTRIBUTION WIDTH SD (test code=RDW-SD) 39.5 fL 37.0-51.0 PLATELET COUNT (test code=PLT) 185 K/mm3 150-450 MEAN PLATELET VOLUME (test code=MPV) 10.1 fL 6.7-11.0 IMMATURE GRANULOCYTE % (test code=IG%) 0.5 % 0.0-5.0 NUCLEATED RBC % (test code=NRBC%) 0.0 % 0-0 NEUTROPHIL # (test code=NT#) 12.51 K/mm3 1.8-7.7 IMMATURE GRANULOCYTE # (test code=IG#) 0.07 x10 3/uL 0-0.03 LYMPHOCYTE # (test code=LY#) 0.40 K/mm3 1.0-5.0 MONOCYTE # (test code=MO#) 0.92 K/mm3 0-0.8 EOSINOPHIL # (test code=EO#) 0.01 K/mm3 0.0-0.5 BASOPHIL # (test code=BA#) 0.02 K/mm3 0.0-0.2 NUCLEATED RBC # (test code=NRBC#) 0.00 K/mm3 0.0-0.1 MANUAL DIFF REQUIRED (test code=MDIFF) YES STAIN ACCEPTABILITY (test code=STN ACCEPTABLE) TOTAL CELLS COUNTED (test code=TCC) #CELLS SEGMENTED NEUTROPHILS (test code=SEG) % 39-69 LYMPHOCYTE (test code=LYMPH) % 25-55 MONOCYTE (test code=MON) % 0-10 EOSINOPHIL (test code=EOS) % 0.0-5.0 MORPHOLOGY COMMENT (test code=MOC) PLATELET ESTIMATE (test code=PLTEST) PLATELET MORPHOLOGY (test code=PLTMORPH) CBC W/MANUAL [id number] 01:04:00* Test Item Value Reference Range Comments WHITE BLOOD CELL (test code=WBC) 13.9 K/mm3 4.5-12.5 RED BLOOD CELL (test code=RBC) 4.45 mill/mm3 4.0-5.8 HEMOGLOBIN (test code=HGB) 13.4 gram/dL 13.0-17.5 HEMATOCRIT (test code=HCT) 38.8 % 42.0-52.0 MEAN CELL VOLUME (test code=MCV) 87.2 fL 80-98 MEAN CELL HGB (test code=MCH) 30.1 picogram 27.0-33.0 MEAN CELL HGB CONCETRATION (test code=MCHC) 34.5 gram/dL 33.0-36.0 RED CELL DISTRIBUTION WIDTH (test code=RDW) 12.1 % 11.6-16.2 RED CELL DISTRIBUTION WIDTH SD (test code=RDW-SD) 39.5 fL 37.0-51.0 PLATELET COUNT (test code=PLT) 185 K/mm3 150-450 MEAN PLATELET VOLUME (test code=MPV) 10.1 fL 6.7-11.0 IMMATURE GRANULOCYTE % (test code=IG%) 0.5 % 0.0-5.0 NUCLEATED RBC % (test code=NRBC%) 0.0 % 0-0 NEUTROPHIL # (test code=NT#) 12.51 K/mm3 1.8-7.7 IMMATURE GRANULOCYTE # (test code=IG#) 0.07 x10 3/uL 0-0.03 LYMPHOCYTE # (test code=LY#) 0.40 K/mm3 1.0-5.0 MONOCYTE # (test code=MO#) 0.92 K/mm3 0-0.8 EOSINOPHIL # (test code=EO#) 0.01 K/mm3 0.0-0.5 BASOPHIL # (test code=BA#) 0.02 K/mm3 0.0-0.2 NUCLEATED RBC # (test code=NRBC#) 0.00 K/mm3 0.0-0.1 MANUAL DIFF REQUIRED (test code=MDIFF) YES STAIN ACCEPTABILITY (test code=STN ACCEPTABLE) TOTAL CELLS COUNTED (test code=TCC) #CELLS SEGMENTED NEUTROPHILS (test code=SEG) % 39-69 LYMPHOCYTE (test code=LYMPH) % 25-55 MONOCYTE (test code=MON) % 0-10 EOSINOPHIL (test code=EOS) % 0.0-5.0 CABOT RINGS (test code=CAB) MORPHOLOGY COMMENT (test code=MOC) PLATELET ESTIMATE (test code=PLTEST) PLATELET MORPHOLOGY (test code=PLTMORPH) CBC W/MANUAL [id number] 01:04:00* Test Item Value Reference Range Comments WHITE BLOOD CELL (test code=WBC) 13.9 K/mm3 4.5-12.5 RED BLOOD CELL (test code=RBC) 4.45 mill/mm3 4.0-5.8 HEMOGLOBIN (test code=HGB) 13.4 gram/dL 13.0-17.5 HEMATOCRIT (test code=HCT) 38.8 % 42.0-52.0 MEAN CELL VOLUME (test code=MCV) 87.2 fL 80-98 MEAN CELL HGB (test code=MCH) 30.1 picogram 27.0-33.0 MEAN CELL HGB CONCETRATION (test code=MCHC) 34.5 gram/dL 33.0-36.0 RED CELL DISTRIBUTION WIDTH (test code=RDW) 12.1 % 11.6-16.2 RED CELL DISTRIBUTION WIDTH SD (test code=RDW-SD) 39.5 fL 37.0-51.0 PLATELET COUNT (test code=PLT) 185 K/mm3 150-450 MEAN PLATELET VOLUME (test code=MPV) 10.1 fL 6.7-11.0 IMMATURE GRANULOCYTE % (test code=IG%) 0.5 % 0.0-5.0 NUCLEATED RBC % (test code=NRBC%) 0.0 % 0-0 NEUTROPHIL # (test code=NT#) 12.51 K/mm3 1.8-7.7 IMMATURE GRANULOCYTE # (test code=IG#) 0.07 x10 3/uL 0-0.03 LYMPHOCYTE # (test code=LY#) 0.40 K/mm3 1.0-5.0 MONOCYTE # (test code=MO#) 0.92 K/mm3 0-0.8 EOSINOPHIL # (test code=EO#) 0.01 K/mm3 0.0-0.5 BASOPHIL # (test code=BA#) 0.02 K/mm3 0.0-0.2 NUCLEATED RBC # (test code=NRBC#) 0.00 K/mm3 0.0-0.1 MANUAL DIFF REQUIRED (test code=MDIFF) YES STAIN ACCEPTABILITY (test code=STN ACCEPTABLE) TOTAL CELLS COUNTED (test code=TCC) #CELLS SEGMENTED NEUTROPHILS (test code=SEG) % 39-69 LYMPHOCYTE (test code=LYMPH) % 25-55 MONOCYTE (test code=MON) % 0-10 EOSINOPHIL (test code=EOS) % 0.0-5.0 CABOT RINGS (test code=CAB) MORPHOLOGY COMMENT (test code=MOC) PLATELET ESTIMATE (test code=PLTEST) PLATELET MORPHOLOGY (test code=PLTMORPH) CBC W/AUTO [id number] 01:02:00* Test Item Value Reference Range Comments WHITE BLOOD CELL (test code=WBC) K/mm3 4.5-12.5 RED BLOOD CELL (test code=RBC) mill/mm3 4.0-5.8 HEMOGLOBIN (test code=HGB) 13.4 gram/dL 13.0-17.5 HEMATOCRIT (test code=HCT) % 42.0-52.0 MEAN CELL VOLUME (test code=MCV) fL 80-98 MEAN CELL HGB (test code=MCH) picogram 27.0-33.0 MEAN CELL HGB CONCETRATION (test code=MCHC) gram/dL 33.0-36.0 RED CELL DISTRIBUTION WIDTH (test code=RDW) % 11.6-16.2 RED CELL DISTRIBUTION WIDTH SD (test code=RDW-SD) fL 37.0-51.0 PLATELET COUNT (test code=PLT) K/mm3 150-450 MEAN PLATELET VOLUME (test code=MPV) fL 6.7-11.0 NEUTROPHIL % (test code=NT%) % 39.0-69.0 IMMATURE GRANULOCYTE % (test code=IG%) % 0.0-5.0 LYMPHOCYTE % (test code=LY%) % 25.0-55.0 MONOCYTE % (test code=MO%) % 0.0-10.0 EOSINOPHIL % (test code=EO%) % 0.0-5.0 BASOPHIL % (test code=BA%) % 0.0-1.0 NEUTROPHIL # (test code=NT#) K/mm3 1.8-7.7 LYMPHOCYTE # (test code=LY#) K/mm3 1.0-5.0 MONOCYTE # (test code=MO#) K/mm3 0-0.8 EOSINOPHIL # (test code=EO#) K/mm3 0.0-0.5 BASOPHIL # (test code=BA#) K/mm3 0.0-0.2 URINALYSIS [id number] 09:32:00* Test Item Value Reference Range Comments UA COLOR (test code=COLU) YELLOW YELLOW UA APPEARANCE (test code=APPU) TURBID CLEAR UA GLUCOSE DIPSTICK (test code=DGLUU) NEGATIVE mg/dL NEGATIVE UA BILIRUBIN DIPSTICK (test code=BILU) NEGATIVE mg/dL NEGATIVE UA KETONE DIPSTICK (test code=KETU) NEGATIVE mg/dL NEGATIVE UA SPECIFIC GRAVITY (test code=SGU) 1.014 1.001-1.035 UA BLOOD DIPSTICK (test code=MIKE) 0.2 mg/dL (2+) mg/dL NEGATIVE UA PH DIPSTICK (test code=LUIS) 7.0 5.0-8.0 UA PROTEIN DIPSTICK (test code=PROU) 70 (1+) mg/dL NEGATIVE UA UROBILINIOGEN DIPSTICK (test code=URO) Normal mg/dL NEGATIVE UA NITRITE DIPSTICK (test code=VILMA) POSITIVE NEGATIVE UA LEUKOCYTE ESTERASE W REFLEX (test code=LEUUR) 500 Madelaine/uL (3+) Madelaine/uL NEGATIVE UA WBC (test code=WBCU) 40-50 per HPF 0-5 UA RBC (test code=RBCU) 0-3 per HPF 0-5 UA EPITHELIAL CELLS (test code=EPIU) None seen per HPF Few UA BACTERIA (test code=BACU) FEW per HPF NONE Urine Source? Clean CatchURINALYSIS [id number] 08:56:00* Test Item Value Reference Range Comments UA COLOR (test code=COLU) YELLOW YELLOW UA APPEARANCE (test code=APPU) TURBID CLEAR UA GLUCOSE DIPSTICK (test code=DGLUU) NEGATIVE mg/dL NEGATIVE UA BILIRUBIN DIPSTICK (test code=BILU) NEGATIVE mg/dL NEGATIVE UA KETONE DIPSTICK (test code=KETU) NEGATIVE mg/dL NEGATIVE UA SPECIFIC GRAVITY (test code=SGU) 1.014 1.001-1.035 UA BLOOD DIPSTICK (test code=MIKE) 0.2 mg/dL (2+) mg/dL NEGATIVE UA PH DIPSTICK (test code=LUIS) 7.0 5.0-8.0 UA PROTEIN DIPSTICK (test code=PROU) 70 (1+) mg/dL NEGATIVE UA UROBILINIOGEN DIPSTICK (test code=URO) Normal mg/dL NEGATIVE UA NITRITE DIPSTICK (test code=VILMA) POSITIVE NEGATIVE UA LEUKOCYTE ESTERASE W REFLEX (test code=LEUUR) 500 Madelaine/uL (3+) Madelaine/uL NEGATIVE UA WBC (test code=WBCU) per HPF 0-5 UA RBC (test code=RBCU) per HPF 0-5 UA EPITHELIAL CELLS (test code=EPIU) per HPF Few UA BACTERIA (test code=BACU) per HPF NONE Urine Source? Clean CatchBASIC METABOLIC [id number] 12:20:00* Test Item Value Reference Range Comments SODIUM (test code=NA) 137 mmol/L 136-145 POTASSIUM (test code=K) 3.8 mmol/L 3.5-5.1 CHLORIDE (test code=CL) 104.0 mmol/L 98-107 CARBON DIOXIDE (test code=CO2) 26.0 mmol/L 21-32 ANION GAP (test code=GAP) 10.8 10-20 GLUCOSE (test code=GLU) 83 mg/dL 74-106 BLOOD UREA NITROGEN (test code=BUN) 15 mg/dL 7-18 GLOMERULAR FILTRATION RATE (test code=GFR) 60 mL/min >=60 Estimated GFR by using Modified MDRD formula.Chronic kidney disease is defined as either kidney damageor GFR <60 mL/min/1.73 m2 for >3 months. CREATININE (test code=CREAT) 1.20 mg/dL 0.7-1.3 BUN/CREATININE RATIO (test code=BUN/CREA) 12.5 10-20 CALCIUM (test code=CA) 8.7 mg/dL 8.5-10.1 BASIC METABOLIC [id number] 12:16:00* Test Item Value Reference Range Comments SODIUM (test code=NA) 137 mmol/L 136-145 POTASSIUM (test code=K) 3.8 mmol/L 3.5-5.1 CHLORIDE (test code=CL) 104.0 mmol/L 98-107 CARBON DIOXIDE (test code=CO2) mmol/L 21-32 ANION GAP (test code=GAP) 10-20 GLUCOSE (test code=GLU) mg/dL 74-106 BLOOD UREA NITROGEN (test code=BUN) mg/dL 7-18 GLOMERULAR FILTRATION RATE (test code=GFR) mL/min >=60 CREATININE (test code=CREAT) mg/dL 0.7-1.3 BUN/CREATININE RATIO (test code=BUN/CREA) 10-20 CALCIUM (test code=CA) 8.7 mg/dL 8.5-10.1 URINALYSIS [id number] 12:15:00* Test Item Value Reference Range Comments UA COLOR (test code=COLU) Light-Yellow YELLOW UA APPEARANCE (test code=APPU) CLEAR CLEAR UA GLUCOSE DIPSTICK (test code=DGLUU) NEGATIVE mg/dL NEGATIVE UA BILIRUBIN DIPSTICK (test code=BILU) NEGATIVE mg/dL NEGATIVE UA KETONE DIPSTICK (test code=KETU) 10 (1+) mg/dL NEGATIVE UA SPECIFIC GRAVITY (test code=SGU) 1.007 1.001-1.035 UA BLOOD DIPSTICK (test code=MIKE) Negative mg/dL NEGATIVE UA PH DIPSTICK (test code=LUIS) 5.5 5.0-8.0 UA PROTEIN DIPSTICK (test code=PROU) NEGATIVE mg/dL NEGATIVE UA UROBILINIOGEN DIPSTICK (test code=URO) Normal mg/dL NEGATIVE UA NITRITE DIPSTICK (test code=VILMA) NEGATIVE NEGATIVE UA LEUKOCYTE ESTERASE W REFLEX (test code=LEUUR) NEGATIVE Madelaine/uL NEGATIVE UA WBC (test code=WBCU) 0-5 per HPF 0-5 UA RBC (test code=RBCU) 0-2 #/HPF 0-5 UA EPITHELIAL CELLS (test code=EPIU) Few (2-5/hpf) per HPF FEW UA BACTERIA (test code=BACU) FEW #/HPF NONE UA MUCUS (test code=MUCU) FEW #/LPF FEW Urine Source? Clean CatchURINALYSIS [id number] 12:11:00* Test Item Value Reference Range Comments UA COLOR (test code=COLU) Light-Yellow YELLOW UA APPEARANCE (test code=APPU) CLEAR CLEAR UA GLUCOSE DIPSTICK (test code=DGLUU) NEGATIVE mg/dL NEGATIVE UA BILIRUBIN DIPSTICK (test code=BILU) NEGATIVE mg/dL NEGATIVE UA KETONE DIPSTICK (test code=KETU) 10 (1+) mg/dL NEGATIVE UA SPECIFIC GRAVITY (test code=SGU) 1.007 1.001-1.035 UA BLOOD DIPSTICK (test code=MIKE) Negative mg/dL NEGATIVE UA PH DIPSTICK (test code=LUIS) 5.5 5.0-8.0 UA PROTEIN DIPSTICK (test code=PROU) NEGATIVE mg/dL NEGATIVE UA UROBILINIOGEN DIPSTICK (test code=URO) Normal mg/dL NEGATIVE UA NITRITE DIPSTICK (test code=VILMA) NEGATIVE NEGATIVE UA LEUKOCYTE ESTERASE W REFLEX (test code=LEUUR) NEGATIVE Madelaine/uL NEGATIVE UA WBC (test code=WBCU) per HPF 0-5 UA RBC (test code=RBCU) per HPF 0-5 UA EPITHELIAL CELLS (test code=EPIU) per HPF Few UA BACTERIA (test code=BACU) per HPF NONE Urine Source? Clean CatchCBC W/O [id number] 12:09:00* Test Item Value Reference Range Comments WHITE BLOOD CELL (test code=WBC) 5.8 K/mm3 4.5-12.5 RED BLOOD CELL (test code=RBC) 4.28 mill/mm3 4.0-5.8 HEMOGLOBIN (test code=HGB) 13.2 gram/dL 13.0-17.5 HEMATOCRIT (test code=HCT) 38.8 % 42.0-52.0 MEAN CELL VOLUME (test code=MCV) 90.7 fL 80-98 MEAN CELL HGB (test code=MCH) 30.8 picogram 27.0-33.0 MEAN CELL HGB CONCETRATION (test code=MCHC) 34.0 gram/dL 33.0-36.0 RED CELL DISTRIBUTION WIDTH (test code=RDW) 12.0 % 11.6-16.2 PLATELET COUNT (test code=PLT) 174 K/mm3 150-450 MEAN PLATELET VOLUME (test code=MPV) 9.8 fL 6.7-11.0 CBC W/O [id number] 12:07:00* Test Item Value Reference Range Comments WHITE BLOOD CELL (test code=WBC) K/mm3 4.5-12.5 RED BLOOD CELL (test code=RBC) mill/mm3 4.0-5.8 HEMOGLOBIN (test code=HGB) 13.2 gram/dL 13.0-17.5 HEMATOCRIT (test code=HCT) % 42.0-52.0 MEAN CELL VOLUME (test code=MCV) fL 80-98 MEAN CELL HGB (test code=MCH) picogram 27.0-33.0 MEAN CELL HGB CONCETRATION (test code=MCHC) gram/dL 33.0-36.0 RED CELL DISTRIBUTION WIDTH (test code=RDW) % 11.6-16.2 PLATELET COUNT (test code=PLT) K/mm3 150-450 MEAN PLATELET VOLUME (test code=MPV) fL 6.7-11.0 - CT ABD PELVIS [id number] 08:51:00 Name: PATRICK CASIANO [facility] : 12/08/1946 Age/S: 71 / M [address] [facility] Unit #: [id number] Loc: [place] [address] Phys: SHE QUESADA MD Acct: [id number] Dis Date: Status: REG ER PHONE #: [phone] Exam Date: 06/14/2018 0836 FAX #: [phone] Reason: abdominanl pain, vomiting EXAMS: CPT CODE: [id number] CT ABD PELVIS W/CONT 93324 HISTORY: Abdominal pain and vomiting. COMPARISON: None available. CT of abdomen and pelvis with IV contrast: 100 and normal of [id number]. Automated exposure control. CT of abdomen: The lung bases are clear. Calcified granulomas on the right side. Hepatic parenchyma is enhancing homogeneously. Fatty infiltration along the right side of the falciform ligament. Nodular enhancing lesion in the posterior dome on the left on the early phase likely small hemangioma. This is not clearly visible on the delayed sequence the liver is measuring 14.4 cm in length. Gallbladder is without radiopaque stones. Unremarkable spleen. The stomach distended incompletely but it is normal in appearance. Pancreas is enhancing homogeneously. Left adrenal is demonstrating hyperplasia. Right adrenal is within normal limits. Both kidneys are free from hydroureteronephrosis. Homogeneous enhancement and bilateral excretion. Bosniak 3 lesion is demonstrating enhancement in posterolateral interpolar region measuring 1.3 cm with average Hounsfield unit measurement ranging up to 78. Follow-up for further characterization and evaluation on nonemergent basis with MRI scan. No pathologic adenopathy. Well-opacified abdominal and pelvic vasculature with mild atherosclerotic change. No bowel obstruction or colitis or diverticulitis or enter itis. Constipation. CT PELVIS: Appendix is nor mal. Pelvic bowel loops are unobstructed. Mildly thickened cecal wall may suggest cecal colitis. Rest of the colon appears within normal limits. No free fluid or free air or abscess is noted. Unremarkable wel l-distended urinary bladder. Prostatomegaly at 4.6 cm. PAGE 1 Signed Report (CONTINUED) Name: PATRICK CASIANO [facility] : 12/08/1946 Age/S: 71 / M [address] Unit #: [id number] Loc: [place] [address] Phys: SHE QUESADA MD Acct: [id number] Dis Date: Status: REG ER PHONE #: [phone] Exam Date: 06/14/2018 0836 FAX #: [phone] Reason: abdominanl pain, vomiting EXAMS: CPT CODE: [id number] CT ABD PELVIS W/CONT 74537 <Continued> No pelvic pathologic adenopathy. The subcutaneous tissues and the musculature are normal in appearance. No lytic or blastic lesions are noted within the bony skeleton. DJD. Bone island within the left hip. IMPRESSION: Mild cecal colitis and mild wall thickening. No significant inflammation. No free fluid or free air or abscess. Appendix is within normal limits. No hydroureteronephrosis with homogeneous enhancement. The urinary bladder is unremarkable. Enhancing lesion in the interpolar region of the left kidney posteriorly and laterally measuring 1.3 cm with average Hounsfield unit measurement ranging up to 78 is classified as Bosniak 3 and nonemergent MRI scan is recommended for further evaluation and characterization. Early enhancing 1 cm lesion in the dome of the liver posteriorly likely hemangioma not seen on the delayed sequence. at 0851 Reported and signed by: Acosta Nugent M.D. CC: SHE QUESADA MD Technologist:Geetha Preciado,RT(R),CT CTDI: DLP: Trnscb Date/Time: 06/14/2018 (0851) [email or web address] Orig Print D/T: S: 06/14/2018 (0854) CTDI: DLP: PAGE 2 Signed Report URINALYSIS [id number] 08:10:00* Test Item Value Reference Range Comments UA COLOR (test code=COLU) COLORLESS YELLOW UA APPEARANCE (test code=APPU) CLEAR CLEAR UA GLUCOSE DIPSTICK (test code=DGLUU) NEGATIVE mg/dL NEGATIVE UA BILIRUBIN DIPSTICK (test code=BILU) NEGATIVE mg/dL NEGATIVE UA KETONE DIPSTICK (test code=KETU) 10 (1+) mg/dL NEGATIVE UA SPECIFIC GRAVITY (test code=SGU) 1.006 1.001-1.035 UA BLOOD DIPSTICK (test code=MIKE) 0.03 mg/dL (Trace) mg/dL NEGATIVE UA PH DIPSTICK (test code=LUIS) 7.0 5.0-8.0 UA PROTEIN DIPSTICK (test code=PROU) NEGATIVE mg/dL NEGATIVE UA UROBILINIOGEN DIPSTICK (test code=URO) Normal mg/dL NEGATIVE UA NITRITE DIPSTICK (test code=VILMA) NEGATIVE NEGATIVE UA LEUKOCYTE ESTERASE W REFLEX (test code=LEUUR) NEGATIVE Madelaine/uL NEGATIVE UA WBC (test code=WBCU) 0-5 per HPF 0-5 UA RBC (test code=RBCU) 3-5 #/HPF 0-5 UA EPITHELIAL CELLS (test code=EPIU) None seen per HPF FEW UA BACTERIA (test code=BACU) NONE SEEN #/HPF NONE Urine Source? Clean CatchURINALYSIS [id number] 08:05:00* Test Item Value Reference Range Comments UA COLOR (test code=COLU) COLORLESS YELLOW UA APPEARANCE (test code=APPU) CLEAR CLEAR UA GLUCOSE DIPSTICK (test code=DGLUU) NEGATIVE mg/dL NEGATIVE UA BILIRUBIN DIPSTICK (test code=BILU) NEGATIVE mg/dL NEGATIVE UA KETONE DIPSTICK (test code=KETU) 10 (1+) mg/dL NEGATIVE UA SPECIFIC GRAVITY (test code=SGU) 1.006 1.001-1.035 UA BLOOD DIPSTICK (test code=MIKE) 0.03 mg/dL (Trace) mg/dL NEGATIVE UA PH DIPSTICK (test code=LUIS) 7.0 5.0-8.0 UA PROTEIN DIPSTICK (test code=PROU) NEGATIVE mg/dL NEGATIVE UA UROBILINIOGEN DIPSTICK (test code=URO) Normal mg/dL NEGATIVE UA NITRITE DIPSTICK (test code=VILMA) NEGATIVE NEGATIVE UA LEUKOCYTE ESTERASE W REFLEX (test code=LEUUR) NEGATIVE Madelaine/uL NEGATIVE UA WBC (test code=WBCU) per HPF 0-5 UA RBC (test code=RBCU) per HPF 0-5 UA EPITHELIAL CELLS (test code=EPIU) per HPF Few UA BACTERIA (test code=BACU) per HPF NONE Urine Source? Clean CatchTHYROID STIMULATING [id number] 08:04:00* Test Item Value Reference Range Comments THYROID STIMULATING HORMONE (test code=TSH) 1.180 uIU/mL 0.36-3.74 TSH REFERENCE RANGES: EUTHYROID: 0.35 - 4.3 mIU/mL HYPO : > 5.5 mIU/mL HYPER : < 0.35 mIU/mL CBC W/O [id number] 08:03:00* Test Item Value Reference Range Comments WHITE BLOOD CELL (test code=WBC) 8.5 K/mm3 4.5-12.5 RED BLOOD CELL (test code=RBC) 4.23 mill/mm3 4.0-5.8 HEMOGLOBIN (test code=HGB) 12.8 gram/dL 13.0-17.5 HEMATOCRIT (test code=HCT) 38.4 % 42.0-52.0 MEAN CELL VOLUME (test code=MCV) 90.8 fL 80-98 MEAN CELL HGB (test code=MCH) 30.3 picogram 27.0-33.0 MEAN CELL HGB CONCETRATION (test code=MCHC) 33.3 gram/dL 33.0-36.0 RED CELL DISTRIBUTION WIDTH (test code=RDW) 11.9 % 11.6-16.2 PLATELET COUNT (test code=PLT) 180 K/mm3 150-450 MEAN PLATELET VOLUME (test code=MPV) 10.3 fL 6.7-11.0 BASIC METABOLIC [id number] 08:01:00* Test Item Value Reference Range Comments SODIUM (test code=NA) 131 mmol/L 136-145 POTASSIUM (test code=K) 3.9 mmol/L 3.5-5.1 CHLORIDE (test code=CL) 100.0 mmol/L 98-107 CARBON DIOXIDE (test code=CO2) 23.0 mmol/L 21-32 ANION GAP (test code=GAP) 11.9 10-20 GLUCOSE (test code=GLU) 88 mg/dL 74-106 BLOOD UREA NITROGEN (test code=BUN) 17 mg/dL 7-18 GLOMERULAR FILTRATION RATE (test code=GFR) > 60 mL/min >=60 Estimated GFR by using Modified MDRD formula.Chronic kidney disease is defined as either kidney damageor GFR <60 mL/min/1.73 m2 for >3 months. CREATININE (test code=CREAT) 1.10 mg/dL 0.7-1.3 BUN/CREATININE RATIO (test code=BUN/CREA) 15.5 10-20 CALCIUM (test code=CA) 8.5 mg/dL 8.5-10.1 HEPATIC FUNCTION [id number] 08:01:00* Test Item Value Reference Range Comments TOTAL PROTEIN (test code=PROT) 7.3 gram/dL 6.4-8.2 ALBUMIN (test code=ALB) 3.7 g/dL 3.4-5.0 GLOBULIN (test code=GLOB) 3.6 gram/dL 2.7-4.2 ALBUMIN/GLOBULIN RATIO (test code=A/G) 1.0 0.75-1.50 BILIRUBIN TOTAL (test code=BILT) 0.80 mg/dL 0.0-1.0 BILIRUBIN DIRECT (test code=BILD) 0.14 mg/dL 0.0-0.20 SGOT/AST (test code=AST) 37 IUnit/L 15-37 SGPT/ALT (test code=ALT) 40 IUnit/L 12-78 ALKALINE PHOSPHATASE TOTAL (test code=ALKP) 66 IUnit/L 45-117 Note change in reference range due to change in reagent. [id number] 08:01:00* Test Item Value Reference Range Comments LIPASE (test code=LIP) 113 U/L 73.0-393.0 [id number] 08:01:00* Test Item Value Reference Range Comments TROPONIN-I (test code=TROPI) <0.015 ng/mL 0-0.045 - XR CHEST 1 [id number] 08:00:00 FAX: SHE QUESADA MD [place]: St: REG Name: PATRICK TALLEY [facility] : 12/07/18 49 Age/S: 71/M [address] [facility] Unit #: [id number] Loc: [place] [address] Phys: SHE QUESADA MD Acct: [id number] Dis Date: Status: REG ER PHONE #: [phone] Exam Date: 06/14/2018 0754 FAX #: [phone] Reason: wheezing EXAMS: CPT CODE: [id number] XR CHEST 1 V 32219 HISTORY: wheezing TE CHNIQUE: AP chest x-ray COMPARISON: 03/20/17 FINDINGS : No airspace consolidation or pleural effusion. Pulmonary h yperinflation, suggesting COPD. Normal heart size. Mediastinal silhouette is unremarkable. Visualized osseous structures are grossly intact. IMPRESSION: No acute findings or significant interval change. at 08 00 Reported and signed by: Virgen Zelaya D.O. CC: SHE QUESADA MD Technologist: Rosie Bates(R); STUDENT TECHNOLOGIST Trnscrd Date/Time/By: 06/14/2018 (0800) : By: [email or web address] Orig Print D/T: S: 06/14/2018 (0803) PAGE 1 Signed Report [id number] 07:50:00* Test Item Value Reference Range Comments MAGNESIUM (test code=MAG) 1.9 mg/dL 1.8-2.4 BASIC METABOLIC [id number] 07:49:00* Test Item Value Reference Range Comments SODIUM (test code=NA) 131 mmol/L 136-145 POTASSIUM (test code=K) 3.9 mmol/L 3.5-5.1 CHLORIDE (test code=CL) 100.0 mmol/L 98-107 CARBON DIOXIDE (test code=CO2) mmol/L 21-32 ANION GAP (test code=GAP) 10-20 GLUCOSE (test code=GLU) mg/dL 74-106 BLOOD UREA NITROGEN (test code=BUN) mg/dL 7-18 GLOMERULAR FILTRATION RATE (test code=GFR) mL/min >=60 CREATININE (test code=CREAT) mg/dL 0.7-1.3 BUN/CREATININE RATIO (test code=BUN/CREA) 10-20 CALCIUM (test code=CA) mg/dL 8.5-10.1 HEPATIC FUNCTION [id number] 07:49:00* Test Item Value Reference Range Comments TOTAL PROTEIN (test code=PROT) gram/dL 6.4-8.2 ALBUMIN (test code=ALB) g/dL 3.4-5.0 GLOBULIN (test code=GLOB) gram/dL 2.7-4.2 ALBUMIN/GLOBULIN RATIO (test code=A/G) 0.75-1.50 BILIRUBIN TOTAL (test code=BILT) mg/dL 0.0-1.0 BILIRUBIN DIRECT (test code=BILD) mg/dL 0.0-0.20 SGOT/AST (test code=AST) IUnit/L 15-37 SGPT/ALT (test code=ALT) IUnit/L 12-78 ALKALINE PHOSPHATASE TOTAL (test code=ALKP) IUnit/L 45-117 [id number] 07:49:00* Test Item Value Reference Range Comments LIPASE (test code=LIP) U/L 73.0-393.0 [id number] 07:49:00* Test Item Value Reference Range Comments TROPONIN-I (test code=TROPI) ng/mL 0-0.045
[2019-03-14] MEDS ORDERED: GENTAMICIN 80MG/NS 100 ML 200 ML IV ONE (08:41)
[2019-03-14] MEDS ORDERED: CEFTRIAXONE SOD 1 GM/NS 50 ML 50 ML IV ONE (08:41)
[2019-03-14] MEDS ORDERED: TYLENOL PM PO (08:47)
[2019-03-14] MEDS ORDERED: IOPAMIDOL 300MG/ML 50ML INFUS..BTL IV ONE (09:43)
[2019-03-14] MEDS ORDERED: B&O 60MG R/S 60 MG SUPP PR ONE (09:43)
[2019-03-14] MEDS ORDERED: ACETAMINOPHEN/CODEINE 300MG - 30MG TAB PO PRN (10:30)
[2019-03-14] MEDS ORDERED: B&O 60MG R/S 60 MG SUPP PR PRN (10:30)
[2019-03-14] MEDS ORDERED: FENTANYL CITRATE/PF 100MCG/2 ML INJ ONE ×2 (12:22→15:21)
[2019-03-14 14:26] LABS: BASOPHILS # (AUTO) 0.1 (0.0-0.1); BASOPHILS % 0.7 % (0.0-1.0); EOSINOPHILS # (AUTO) 0.3 (0.0-0.4); HEMATOCRIT 37.1 % (38.2-49.6); HEMOGLOBIN 12.7 g/dL (14.0-18.0); LYMPHOCYTES # (AUTO) 0.8 (1.0-3.2); LYMPHOCYTES % 10.5 % (18.0-39.1); MEAN CORPUSCULAR HEMOGLOBIN 30.8 pg (28-32); MEAN CORPUSCULAR HGB CONC 34.2 g/dL (31-35); MONOCYTES # (AUTO) 0.1 (0.2-0.8); MONOCYTES % 1.6 % (4.4-11.3); NEUTROPHILS # (AUTO) 6.6 (2.1-6.9); NEUTROPHILS % 82.7 % (38.7-80.0); PLATELET COUNT 200 x10e3/uL (140-360); RED BLOOD COUNT 4.12 x10e6/uL (4.3-5.7); RED CELL DISTRIBUTION WIDTH 12.2 % (11.7-14.4)
[2019-03-14 14:44] LABS: ANION GAP 13.1 mmol/L (8-16); BLOOD UREA NITROGEN 18 mg/dL (7-26); BUN/CREATININE RATIO 19 (6-25); CALCIUM 8.6 mg/dL (8.4-10.2); CARBON DIOXIDE 25 mmol/L (22-29); CHLORIDE 104 mmol/L (98-107); CREATININE, SERUM 0.97 mg/dL (0.72-1.25); EST GLOMERULAR FILTRATION RATE > 60 ML/MIN (60-); GLUCOSE 92 mg/dL (74-118); POTASSIUM 4.1 mmol/L (3.5-5.1); SODIUM 138 mmol/L (136-145)
[2019-03-14] MEDS ORDERED: SEVOFLURANE INHAL SOLN 250 ML PEN BTL ONE (15:19)
[2019-03-14] MEDS ORDERED: ONDANSETRON HCL INJ 2MG/ML 2ML 2 MG/ML VIAL ONE (15:19)
[2019-03-14] MEDS ORDERED: EPHEDRINE SULFATE INJ 50 MG/ML VIAL ONE (15:19)
[2019-03-14] MEDS ORDERED: ACETAMINOPHEN 1000 MG/100 ML IV ONE (15:19)
[2019-03-14] MEDS ORDERED: DEXAMETHASONE SOD PHOS INJ 4 MG/ML VIAL ONE (15:19)
[2019-03-14] MEDS ORDERED: LIDOCAINE HCL 2% LOCAL INJ 5 ML SDV VIAL INJ ONE (15:19)
[2019-03-14] MEDS ORDERED: PROPOFOL IV EMULSION 10 MG/ML 20 ML VIAL ONE (15:19)
[2019-03-14] MEDS: D5.45%NS/KCL 20MEQ 1,000 ML IV SCH ×2 (15:45→23:21)
[2019-03-14 16:01] VITALS: BP 129/63
[2019-03-14 16:05] VITALS: BP 129/63
--- NOTE | 2019-03-14 16:20 | NUR ---
The pt. was received from [facility] via stretcher with CBI running and iv patent and intact. The pt. is extremely [place] and is poor historian. Adm procedures carried an the pt. made comfortable. The pt. reports hunger and was advised that he will receive dinner. Side rail and bedside alarm is engaged.
[2019-03-14 16:22] VITALS: BP 129/63
[2019-03-14] MEDS: PHENAZOPYRIDINE HCL 100 MG TAB PO SCH (17:15)
[2019-03-14] MEDS: DOCUSATE SODIUM 100 MG CAP PO SCH (17:15)
--- NOTE | 2019-03-14 18:51 | NUR ---
WALKING ROUNDS PERFORMED, RECEIVED PT LAYING SEMI FOWLERS IN BED, AAOX3, RR EVEN AND NON-LABORED, ON ROOM AIR. NO S/SX OF DISTRESS NOTED. PT RECEIVING CBI, URINE NOTED TO BE BRIGHT ORANGE, DECREASED CBI FLOW. LEFT PT LAYING SEMI FOWLERS IN BED, BED IN LOW LOCKED POSITION, SIDE RAILS UPX2, CALL LIGHT AND PHONE WITHIN REACH.
[2019-03-14 20:22] VITALS: BP 103/55
[2019-03-14 20:53] VITALS: BP 103/55
--- NOTE | 2019-03-14 20:53 | NUR ---
BLOODY SEDIMENT NOTED TO CATHETER TUBING, INCREASED FLOW RATE OF CBI.
[2019-03-15] VITALS (8 sets, daily range): BP systolic 100–125; BP diastolic 55–73
--- NOTE | 2019-03-15 05:08 | NUR ---
PT REPORTS INDIGESTION, SPOKE WITH MD GRIFFITHS, NEW ORDERS RECEIVED.
[2019-03-15] MEDS ORDERED: FAMOTIDINE 20 MG TAB PO PRN (05:15)
[2019-03-15] MEDS: D5.45%NS/KCL 20MEQ 1,000 ML IV SCH ×2 (06:00→07:16)
--- NOTE | 2019-03-15 07:54 | NUR ---
Received patient and a/ox3, no resp distress, received this morning and pains well managed,in bed, Thayer in place and draining, will , continues CBI, call light within reach and will monitor.
[2019-03-15 08:30] LABS: BASOPHILS # (AUTO) 0.1 (0.0-0.1); BASOPHILS % 0.5 % (0.0-1.0); EOSINOPHILS # (AUTO) 0.3 (0.0-0.4); EOSINOPHILS % 2.8 % (0.0-6.0); HEMATOCRIT 41.5 % (38.2-49.6); HEMOGLOBIN 13.6 g/dL (14.0-18.0); LYMPHOCYTES # (AUTO) 1.7 (1.0-3.2); LYMPHOCYTES % 15.8 % (18.0-39.1); MEAN CORPUSCULAR HEMOGLOBIN 29.8 pg (28-32); MEAN CORPUSCULAR HGB CONC 32.8 g/dL (31-35); MEAN CORPUSCULAR VOLUME 90.8 fL (81-99); MONOCYTES # (AUTO) 0.6 (0.2-0.8); MONOCYTES % 5.6 % (4.4-11.3); NEUTROPHILS % 74.8 % (38.7-80.0); PLATELET COUNT 201 x10e3/uL (140-360); RED BLOOD COUNT 4.57 x10e6/uL (4.3-5.7); RED CELL DISTRIBUTION WIDTH 12.2 % (11.7-14.4)
--- NOTE | 2019-03-15 08:46 | NUR ---
Patient grimacing, pain 5/10 to suprapubic region, medicated, emptied Thayer 2500cc, CBI in place.
[2019-03-15] MEDS: PHENAZOPYRIDINE HCL 100 MG TAB PO SCH ×3 (08:47→18:02)
[2019-03-15] MEDS: DOCUSATE SODIUM 100 MG CAP PO SCH ×2 (08:47→16:13)
[2019-03-15 08:48] LABS: ANION GAP 11.8 mmol/L (8-16); BLOOD UREA NITROGEN 13 mg/dL (7-26); BUN/CREATININE RATIO 14 (6-25); CALCIUM 8.7 mg/dL (8.4-10.2); CARBON DIOXIDE 25 mmol/L (22-29); CHLORIDE 105 mmol/L (98-107); CREATININE, SERUM 0.95 mg/dL (0.72-1.25); EST GLOMERULAR FILTRATION RATE > 60 ML/MIN (60-); GLUCOSE 96 mg/dL (74-118); POTASSIUM 3.8 mmol/L (3.5-5.1); SODIUM 138 mmol/L (136-145)
[2019-03-15] MEDS ORDERED: ONDANSETRON HCL 4 MG ORAL DISINTEGRATING TAB PO PRN (10:00)
[2019-03-15] MEDS ORDERED: ONDANSETRON HCL INJ 2MG/ML 2ML 2 MG/ML VIAL IV PRN (10:00)
[2019-03-15] MEDS ORDERED: MAGNESIUM HYDROXIDE 30 ML UDC PO PRN (10:00)
[2019-03-15] MEDS ORDERED: MAGNESIUM/ALUMINUM/SIMETHICONE 30 ML UDC PO PRN (10:00)
[2019-03-15] MEDS ORDERED: ACETAMINOPHEN 325 MG TAB PO PRN (10:00)
[2019-03-15] MEDS: CEFTRIAXONE SOD 1 GM/NS 50 ML 50 ML IV SCH (10:35)
--- NOTE | 2019-03-15 11:36 | NUR ---
Nutrition Screen Note RD Recommendation for Physician: Continue diet as ordered Plan of Care: RD following. Nutrition reason for involvement: Nutrition Risk Trigger - MST Primary Diagnose(s):Prostatism Ht:67 in Wt:120lb BMI:18.8 kg/m2 IBW:148lb RD Assessment:(03/15/2019) Initial encounter with patient. Medications reviewed. Biochemical data reviewed. Pt with a Hx of malnutrition due to poor Po intake with wt loss, with an onset around July 2018. Pt's UBW is 140# and he got down as low as 108#. Pt has since been eating very well and has been gradually gaining his weight back. Pt ate 100% of meal tray. Pt denies any difficulty chewing or swallowing despite being edentulous. Pt refusing any texture modifications offered. Pt with C/O diarrhea. Current Diet: Regular diet Malnutrition Evaluation (03/15/2019) The patient does not meet criteria for a specified degree of malnutrition at this time. Will re-evaluate at follow-up as appropriate. Diet Education Needs Assessment: Diet education not indicated. Diet Adequacy: Meeting calorie needs, Meeting protein needs, Meeting fluid needs. Tolerance: Tolerating PO Nutrition Care Level: Low
[2019-03-15] MEDS: SODIUM CHLORIDE 0.9% 1000ML 1,000 ML IV SCH ×3 (11:52→23:23)
[2019-03-15] MEDS: FAMOTIDINE 20 MG TAB PO SCH (16:13)
--- NOTE | 2019-03-15 16:24 | NUR ---
Patient c/o nausea and medicated at this time, Thayer in place still draining, no vomiting, appetite fair and will monitor.
--- NOTE | 2019-03-15 19:13 | NUR ---
Patient alert and responsive, no distress, report given to on coming nurse and rounds completed, call light within reach.
[2019-03-16] VITALS: BP 109/57
[2019-03-16 04:00] VITALS: BP 101/62
[2019-03-16 05:53] LABS: BASOPHILS # (AUTO) 0.1 (0.0-0.1); BASOPHILS % 0.8 % (0.0-1.0); EOSINOPHILS # (AUTO) 0.8 (0.0-0.4); EOSINOPHILS % 9.1 % (0.0-6.0); HEMATOCRIT 36.9 % (38.2-49.6); HEMOGLOBIN 12.4 g/dL (14.0-18.0); LYMPHOCYTES # (AUTO) 1.8 (1.0-3.2); LYMPHOCYTES % 19.6 % (18.0-39.1); MEAN CORPUSCULAR HEMOGLOBIN 30.2 pg (28-32); MEAN CORPUSCULAR HGB CONC 33.6 g/dL (31-35); MEAN CORPUSCULAR VOLUME 89.8 fL (81-99); MONOCYTES # (AUTO) 0.6 (0.2-0.8); NEUTROPHILS # (AUTO) 5.7 (2.1-6.9); NEUTROPHILS % 63.1 % (38.7-80.0); PLATELET COUNT 176 x10e3/uL (140-360); RED BLOOD COUNT 4.11 x10e6/uL (4.3-5.7); RED CELL DISTRIBUTION WIDTH 12.2 % (11.7-14.4)
[2019-03-16] MEDS: SODIUM CHLORIDE 0.9% 1000ML 1,000 ML IV SCH ×2 (06:00→16:00)
[2019-03-16 06:10] LABS: ANION GAP 12.6 mmol/L (8-16); BLOOD UREA NITROGEN 12 mg/dL (7-26); BUN/CREATININE RATIO 11 (6-25); CALCIUM 8.5 mg/dL (8.4-10.2); CARBON DIOXIDE 24 mmol/L (22-29); CHLORIDE 106 mmol/L (98-107); CREATININE, SERUM 1.09 mg/dL (0.72-1.25); EST GLOMERULAR FILTRATION RATE > 60 ML/MIN (60-); GLUCOSE 79 mg/dL (74-118); POTASSIUM 4.6 mmol/L (3.5-5.1); SODIUM 138 mmol/L (136-145)
[2019-03-16] MEDS: FAMOTIDINE 20 MG TAB PO SCH ×2 (07:30→16:53)
--- NOTE | 2019-03-16 07:30 | NUR ---
Received patient this morning, a/ox3, pleasant and no resp distress, in bed and bed alarms on, IV running, CBI in place, Thayer in place draining mostly clear yellow urine. will monitor.
[2019-03-16 07:40] VITALS: BP_SYST 112
[2019-03-16] MEDS: PHENAZOPYRIDINE HCL 100 MG TAB PO SCH ×2 (09:13→13:00)
[2019-03-16] MEDS: DOCUSATE SODIUM 100 MG CAP PO SCH ×2 (09:13→16:53)
[2019-03-16] MEDS: CEFTRIAXONE SOD 1 GM/NS 50 ML 50 ML IV SCH (10:44)
[2019-03-16 12:23] VITALS: BP 114/65
--- NOTE | 2019-03-16 14:02 | NUR ---
Patient alert and responsive, orders to d/c Thayer cath. Thayer cath d/c'd at this time and patient voided x1 hematuria. Will need to collect 4 more serials for clarity.
[2019-03-16 15:37] VITALS: BP 137/62
[2019-03-16] MEDS ORDERED: TYLENOL WITH C1 EACH PO (16:55)
[2019-03-16] MEDS ORDERED: LEVAQUIN500 MG PO (16:56)
--- NOTE | 2019-03-16 17:42 | NUR ---
Call to Dr. Joyce and orders to discharge patient. Prescriptions provided to patient, discharge summary with contacts and address for f/u appt with Dr. Lawrence provided, IV line removed with cath tip in place and dressing applied
--- NOTE | 2019-04-23 00:44 | Operative Report ---
DATE OF PROCEDURE: 03/14/2019 SURGEON: Pacheco Lawrence MD PREOPERATIVE DIAGNOSES: 1. Obstructive benign prostatic hypertrophy. 2. Urinary tract infections. POSTOPERATIVE DIAGNOSES: 1. Obstructive benign prostatic hypertrophy. 2. Urinary tract infections. OPERATIONS PERFORMED: 1. Cystourethroscopy with bilateral ureteral catheterization and retrograde ureteropyelography (separate procedure performed for the urinary tract infections). 2. Interpretation of retrograde ureteropyelography. 3. Supervision of fluoroscopy, no radiologist present. 4. Cystourethroscopy with transurethral resection of the prostate utilizing the plasma button electrode. ANESTHESIA: General. COMPLICATIONS: None. CLINICAL SUMMARY: Real Tapia is a 73-year-old man with obstructive BPH. He is brought for the above procedures. He is aware of the risks of bleeding, infection, injury to adjacent structures, incontinence, impotence, retrograde ejaculation, need for additional procedures and he elected to proceed. OPERATIVE PROCEDURE IN DETAIL: Informed consent was verified. Real Tapia was properly identified and taken to the operating room, placed on the cystoscopy table in supine position. Anesthesia was uneventfully begun. The patient was then carefully and gently repositioned in the dorsal lithotomy position with all pressure points well padded. His genitalia were prepared and draped in usual sterile fashion. The cystoscope sheath with visual obturator in place was atraumatically inserted into the patient's urethra and was guided down the unremarkable distal urethra through normal sphincteric region through the prostate bed, which was significant for urethral mucosal erythema and visually obstructing BPH. We entered the patient's bladder. Panendoscopy of the urinary bladder revealed no suspicious mucosal lesions. No tumors, no stones, no diverticula. There was chronic appearing cystitis that was noted. An 8-[place] catheter was used to cannulate each ureter and retrograde ureteral pyelograms were performed. Interpretation of retrograde ureteropyelography contrast was instilled in retrograde fashion bilaterally. There were no tumors, no stones, and no diverticula. Unobstructed drainage was observed bilaterally fluoroscopically. Some ureteral tortuosity was noted. The cystoscope was withdrawn. The continuous-flow resectoscope sheath with the obturator in place was atraumatically placed. We then utilized the plasma button electrode to vaporize the prostate from the bladder neck to maneuver past the verumontanum and down the surgical capsule. Pinpoint electrocautery was then utilized to achieve hemostasis. The resectoscope was withdrawn. A Thayer catheter was placed with continuous irrigation. It was irrigated to and fro to ensure it worked properly. It was placed on continuous irrigation with completely clear efflux. Belladonna opium suppository was placed revealing a large prostate, smooth, nonfluctuant without any nodules. The patient was then uneventfully reversed from anesthesia and taken to recovery room in stable condition. There were no complications to the procedure. The patient tolerated the procedure well. We will admit the patient for routine postoperative care and of course, the patient will have ongoing urological followup. Pacheco MD SOPHIE Lawrence/DEVIN /[id number]
== END 2019-03-16 17:20 | disposition home or self-care (01) | DRG 713 ==
LOC: OR 08:08 → PACU V 13:21 → MED/SURG 15:34
PROVIDERS: ADMIT Internal Medicine; ATTEND Internal Medicine
PROC: 0T788ZZ Dilation of Bilateral Ureters, Via Natural or Artificial Opening Endoscopic (ICD-10-PCS; 2019-03-14)
PROC: BT141ZZ Fluoroscopy of Kidneys, Ureters and Bladder using Low Osmolar Contrast (ICD-10-PCS; 2019-03-14)
PROC: 0VB08ZZ Excision of Prostate, Via Natural or Artificial Opening Endoscopic (ICD-10-PCS; principal; 2019-03-14 10:52)
DX: N40.1 Benign prostatic hyperplasia with lower urinary tract symptoms (principal); N39.0 Urinary tract infection, site not specified; R33.8 Other retention of urine; F17.200 Nicotine dependence, unspecified, uncomplicated
CPT/HCPCS: 36415; 71046; 74420; 80048; 83735; 85025; 93005; C1758; J0696; J1100; J1580; J2001; J2405; J3010; J7030

== ENCOUNTER 2022-08-07 13:38 | Emergency (ER) | payer MEDICARE, OTHER ==
[~2022-08-07] VITALS: Ht 170.2 cm; Wt 54.4 kg
[~2022-08-07 13:38] MED LIST: LEVAQUIN500 MG PO; TYLENOL PM PO; TYLENOL WITH C1 EACH PO
[2022-08-07 14:09] VITALS: O2SAT 100
[2022-08-07] MEDS ORDERED: HYDROCODONE/APAP 5MG-325MG TAB PO ONE (14:30)
[2022-08-07] MEDS ORDERED: ACETAMINOPHEN-1 EAC4 PO (17:04)
== END 2022-08-07 17:34 | disposition home or self-care (01) ==
LOC: ER 13:48
DX: S32.592A Other specified fracture of left pubis, initial encounter for closed fracture (principal); Y93.55 Activity, bike riding; V09.9XXA Pedestrian injured in unspecified transport accident, initial encounter; Y92.488 Other paved roadways as the place of occurrence of the external cause; F17.210 Nicotine dependence, cigarettes, uncomplicated
CPT/HCPCS: 70450; 72125; 72192; 99283

== ENCOUNTER 2024-06-18 12:41 | Emergency (ER) | payer MEDICARE, OTHER ==
[~2024-06-18] VITALS: Ht 170.2 cm; Wt 59.0 kg
[~2024-06-18 12:41] MED LIST changes: +ACETAMINOPHEN-1 EAC4 PO
[2024-06-18 13:16] VITALS: TEMP 98.1
[2024-06-18] MEDS: SODIUM CHLORIDE 0.9% 1000ML 1,000 ML IV ONE (13:41)
[2024-06-18 13:44] LABS: BASOPHILS # (AUTO) 0.1 (0.0-0.1); EOSINOPHILS % 14.2 % (0.0-6.0); HEMATOCRIT 37.7 % (38.2-49.6); LYMPHOCYTES # (AUTO) 1.6 (1.0-3.2); LYMPHOCYTES % 22.9 % (18.0-39.1); MEAN CORPUSCULAR HEMOGLOBIN 31.7 pg (28-32); MEAN CORPUSCULAR HGB CONC 34.5 g/dL (31-35); MONOCYTES # (AUTO) 0.6 (0.2-0.8); MONOCYTES % 8.1 % (4.4-11.3); NEUTROPHILS # (AUTO) 3.6 (2.1-6.9); NEUTROPHILS % 53.5 % (38.7-80.0); PLATELET COUNT 180 x10e3/uL (140-360); WHITE BLOOD COUNT 6.81 x10e3/uL (4.8-10.8)
[2024-06-18 13:47] LABS: CLARITY,URINE CLEAR (CLEAR); COLOR,URINE YELLOW (YELLOW)
[2024-06-18 13:48] LABS: BILIRUBIN,URINE NEGATIVE (NEGATIVE); GLUCOSE, URINE NEGATIVE (NEGATIVE); KETONES,URINE NEGATIVE (NEGATIVE); LEUKOCYTE ESTERASE ,URINE NEGATIVE (NEGATIVE); NITRITE,URINE NEGATIVE (NEGATIVE); PH,URINE 6.5 (5 - 7); PROTEIN,URINE DIPSTICK NEGATIVE (NEGATIVE); URINE UROBILINOGEN 0.2 mg/dL (0.2 - 1)
[2024-06-18 13:53] LABS: BACTERIA,URINE FEW /HPF; EPITHELIAL CELLS,URINE RARE /LPF; MUCUS,URINE FEW; RBC,URINE 21-50 /HPF (0-5); WBC,URINE (MAN) 0-5 /HPF (0-5)
[2024-06-18 14:03] VITALS: PULSE 68; RESP 18; O2SAT 99
[2024-06-18 14:09] LABS: ALBUMIN/GLOBULIN RATIO 1.1 (0.8-2.0); BILIRUBIN,TOTAL 0.3 mg/dL (0.2-1.2); CALCIUM 8.6 mg/dL (8.4-10.2); CREATININE, SERUM 1.29 mg/dL (0.72-1.25); TOTAL PROTEIN 7.6 g/dL (6.5-8.1)
[2024-06-18] MEDS ORDERED: IOPAMIDOL 370 MG/ML 100 ML INFUS..BTL INJ ONE (14:24)
== END 2024-06-18 16:29 | disposition home or self-care (01) ==
LOC: ER 13:16
DX: R10.32 Left lower quadrant pain (principal); K40.90 Unilateral inguinal hernia, without obstruction or gangrene, not specified as recurrent; N28.89 Other specified disorders of kidney and ureter; R16.0 Hepatomegaly, not elsewhere classified
CPT/HCPCS: 36415; 74177; 80053; 81001; 83690; 85025; 99284; J7030; Q9967

== ENCOUNTER 2024-09-03 12:00 | Inpatient (IN) | payer MEDICARE ==
[~2024-09-03] VITALS: Ht 172.7 cm; Wt 68.5 kg
[2024-09-03] VITALS (10 sets, daily range): BP systolic 109–136; BP diastolic 69–95; PULSE 68–76; RESP 8–19; TEMP 96.5–99.2; O2SAT 96–100
[2024-09-03] MEDS: SODIUM CHLORIDE 0.9% 1000ML 1,000 ML ONE (12:01)
[2024-09-03] MEDS ORDERED: FENTANYL CITRATE/PF 100MCG/2 ML INJ ONE ×2 (12:16→13:42)
[2024-09-03] MEDS ORDERED: PROPOFOL IV EMULSION 10 MG/ML 20 ML VIAL ONE (12:16)
[2024-09-03] MEDS ORDERED: ROCURONIUM BROMIDE 1 ML IV ONE ×2 (12:16→13:47)
[2024-09-03] MEDS ORDERED: KETAMINE HCL INJ 50 MG/ML 10 ML VIAL ONE (12:16)
[2024-09-03] MEDS ORDERED: LIDOCAINE HCL 2% LOCAL INJ 5 ML SDV VIAL INJ ONE ×2 (12:16→15:45)
[2024-09-03 12:39] LABS: BASOPHILS % 1.2 % (0.0-1.0); EOSINOPHILS % 6.8 % (0.0-6.0); LYMPHOCYTES % 21.3 % (18.0-39.1); MONOCYTES % 7.6 % (4.4-11.3); NEUTROPHILS % 62.6 % (38.7-80.0); RED CELL DISTRIBUTION WIDTH 12.0 % (11.7-14.4)
[2024-09-03 13:06] LABS: EST GLOMERULAR FILTRATION RATE 60.0 ML/MIN (>=60)
[2024-09-03] MEDS ORDERED: EPHEDRINE SULFATE INJ 50 MG/ML VIAL ONE (13:11)
[2024-09-03] MEDS ORDERED: ONDANSETRON HCL INJ 2MG/ML 2ML 2 MG/ML VIAL IV PRN (13:30)
[2024-09-03] MEDS: SODIUM CHLORIDE 0.9% 250ML IRRIG IR SCH (13:30)
[2024-09-03] MEDS ORDERED: DIPHENHYDRAMINE HCL INJ 50 MG/ML VIAL IM PRN (13:30)
[2024-09-03] MEDS ORDERED: NALOXONE HCL INJ 0.4 MG/ML AMP IV PRN (13:30)
[2024-09-03] MEDS ORDERED: ACETAMINOPHEN 1000 MG/100 ML IV PRN (13:30)
[2024-09-03] MEDS ORDERED: GLYCOPYRROLATE INJ 0.2 MG/ML VIAL ONE ×2 (13:50→16:08)
[2024-09-03] MEDS ORDERED: ONDANSETRON HCL INJ 2MG/ML 2ML 2 MG/ML VIAL ONE (16:21)
[2024-09-03] MEDS: MUPIROCIN 2% OINT 22 GM TUBE TOP SCH (17:00)
[2024-09-03] MEDS: FENTANYL CITRATE/PF 100MCG/2 ML INJ ONE (17:02)
[2024-09-03] MEDS: MORPHINE SULFATE 1 MG/ML 30ML PCA ONE (17:18)
[2024-09-03 17:50] LABS: BASOPHILS % 0.5 % (0.0-1.0); EOSINOPHILS % 0.9 % (0.0-6.0); LYMPHOCYTES % 6.5 % (18.0-39.1); MONOCYTES % 5.8 % (4.4-11.3); NEUTROPHILS % 85.8 % (38.7-80.0); RED CELL DISTRIBUTION WIDTH 12.1 % (11.7-14.4)
[2024-09-03 18:10] LABS: EST GLOMERULAR FILTRATION RATE 64.0 ML/MIN (>=60)
[2024-09-03] MEDS: D5.45%NS/KCL 20MEQ 1,000 ML IV SCH (18:22)
[2024-09-03] MEDS: DEXTROSE 50% SYRINGE 50 ML IV ONE (19:39)
[2024-09-04] VITALS (28 sets, daily range): BP systolic 109–144; BP diastolic 48–97; PULSE 67–92; RESP 18–32; TEMP 97.6–99.3; O2SAT 90–98
[2024-09-04 05:26] LABS: BASOPHILS % 0.3 % (0.0-1.0); EOSINOPHILS % 0.1 % (0.0-6.0); LYMPHOCYTES % 7.1 % (18.0-39.1); MONOCYTES % 9.8 % (4.4-11.3); NEUTROPHILS % 82.4 % (38.7-80.0); RED CELL DISTRIBUTION WIDTH 12.1 % (11.7-14.4)
[2024-09-04 06:00] LABS: EST GLOMERULAR FILTRATION RATE 50.0 ML/MIN (>=60)
[2024-09-04] MEDS: MORPHINE SULFATE 1 MG/ML 30ML PCA IV PRN (09:44)
[2024-09-04] MEDS ORDERED: HYDRALAZINE HCL 20 MG/ML VIAL IV PRN (09:45)
[2024-09-04] MEDS ORDERED: ONDANSETRON HCL INJ 2MG/ML 2ML 2 MG/ML VIAL IV PRN (09:45)
[2024-09-04] MEDS: SODIUM CHLORIDE 0.9% 1000ML 1,000 ML IV SCH (10:34)
[2024-09-05] VITALS (12 sets, daily range): BP systolic 117–160; BP diastolic 53–121; PULSE 84–100; RESP 16–22; TEMP 97.8–100.7; O2SAT 95–99
[2024-09-05 06:11] LABS: BASOPHILS % 0.3 % (0.0-1.0); EOSINOPHILS % 0.0 % (0.0-6.0); LYMPHOCYTES % 6.3 % (18.0-39.1); MONOCYTES % 9.5 % (4.4-11.3); NEUTROPHILS % 82.9 % (38.7-80.0); RED CELL DISTRIBUTION WIDTH 12.1 % (11.7-14.4)
[2024-09-05 06:41] LABS: EST GLOMERULAR FILTRATION RATE 46.0 ML/MIN (>=60)
[2024-09-05 07:12] LABS: PHOSPHORUS 1.4 MG/DL (2.3-4.7)
[2024-09-05] MEDS: ACETAMINOPHEN 325 MG TAB PO PRN (20:36)
[2024-09-06] VITALS (11 sets, daily range): BP systolic 115–133; BP diastolic 54–71; PULSE 75–85; RESP 17–22; TEMP 97.3–100.4; O2SAT 94–99
[2024-09-06 06:51] LABS: RED CELL DISTRIBUTION WIDTH 12.3 % (11.7-14.4)
[2024-09-06 07:07] LABS: EST GLOMERULAR FILTRATION RATE 49.0 ML/MIN (>=60)
[2024-09-06 12:23] LABS: BASOPHILS % (MANUAL) 1 % (0-1.5); LYMPHOCYTES % (MANUAL) 9 % (19-48); MONOCYTES % (MANUAL) 4 % (3.4-9.0); NEUTROPHILS % (MANUAL) 86 % (40-74)
[2024-09-06 12:24] LABS: PLATELET ESTIMATE SLIGHTLY DECREASED; PLATELET MORPHOLOGY COMMENT NORMAL; RBC MORPHOLOGY COMMENT NORMAL
[2024-09-06] MEDS: LACTATED RINGER'S 1,000 ML INJ SCH (21:40)
[2024-09-07] VITALS (8 sets, daily range): BP systolic 120–150; BP diastolic 64–86; PULSE 72–86; RESP 13–18; TEMP 98.1–99.1; O2SAT 95–100
[2024-09-07 07:28] LABS: BASOPHILS % 0.3 % (0.0-1.0); EOSINOPHILS % 1.0 % (0.0-6.0); LYMPHOCYTES % 6.6 % (18.0-39.1); MONOCYTES % 8.7 % (4.4-11.3); NEUTROPHILS % 81.0 % (38.7-80.0); RED CELL DISTRIBUTION WIDTH 11.9 % (11.7-14.4)
[2024-09-07 09:16] LABS: EST GLOMERULAR FILTRATION RATE 52.0 ML/MIN (>=60)
[2024-09-08] VITALS (9 sets, daily range): BP systolic 93–145; BP diastolic 63–73; PULSE 70–85; RESP 18–20; TEMP 97.7–99; O2SAT 70–100
[2024-09-08] MEDS: ONDANSETRON HCL INJ 2MG/ML 2ML 2 MG/ML VIAL IV PRN (03:49)
[2024-09-08 06:16] LABS: BASOPHILS % 0.5 % (0.0-1.0); EOSINOPHILS % 2.5 % (0.0-6.0); LYMPHOCYTES % 7.1 % (18.0-39.1); MONOCYTES % 10.2 % (4.4-11.3); NEUTROPHILS % 78.5 % (38.7-80.0); RED CELL DISTRIBUTION WIDTH 11.9 % (11.7-14.4)
[2024-09-08 06:43] LABS: EST GLOMERULAR FILTRATION RATE 55.0 ML/MIN (>=60)
[2024-09-08] MEDS: FUROSEMIDE INJ 10 MG/ML 4 ML VIAL IV ONE (11:27)
[2024-09-08] MEDS: ACETAMINOPHEN/CODEINE 300MG - 30MG TAB PO PRN (11:48)
[2024-09-08] MEDS: SENNA-S TABLET PO SCH (17:20)
[2024-09-09] VITALS (12 sets, daily range): BP systolic 115–157; BP diastolic 62–77; PULSE 65–83; RESP 17–20; TEMP 36.7; O2SAT 95–100
[2024-09-09 06:24] LABS: EST GLOMERULAR FILTRATION RATE 45.0 ML/MIN (>=60)
[2024-09-09 06:48] LABS: PHOSPHORUS 2.3 MG/DL (2.3-4.7)
[2024-09-09] MEDS: PANTOPRAZOLE SOD 40 MG TABEC PO SCH (08:37)
[2024-09-10] VITALS (8 sets, daily range): BP systolic 111–135; BP diastolic 62–78; PULSE 63–78; RESP 16–21; TEMP 97–98.3; O2SAT 95–100
[2024-09-10 08:18] LABS: BASOPHILS % 0.7 % (0.0-1.0); EOSINOPHILS % 2.6 % (0.0-6.0); LYMPHOCYTES % 14.3 % (18.0-39.1); MONOCYTES % 9.8 % (4.4-11.3); NEUTROPHILS % 68.7 % (38.7-80.0); RED CELL DISTRIBUTION WIDTH 11.7 % (11.7-14.4)
[2024-09-10 08:57] LABS: EST GLOMERULAR FILTRATION RATE 47.0 ML/MIN (>=60)
[2024-09-10 11:47] LABS: EOSINOPHILS % (MANUAL) 4 % (0-7); LYMPHOCYTES % (MANUAL) 14 % (19-48); MONOCYTES % (MANUAL) 9 % (3.4-9.0); NEUTROPHILS % (MANUAL) 72 % (40-74); PLATELET ESTIMATE ADEQUATE; PLATELET MORPHOLOGY COMMENT NORMAL; RBC MORPHOLOGY COMMENT NORMAL; REACTIVE LYMPHOCYTES 1
[2024-09-10] MEDS: CEFDINIR 300 MG CAP PO SCH (18:15)
== END 2024-09-10 19:25 | disposition home or self-care (01) | DRG 656 ==
LOC: OR 12:00 → PACU V 14:51 → ICU 18:10 → MED/SURG3 09-05 00:04
PROVIDERS: ADMIT Internal Medicine; ATTEND Internal Medicine
PROC: 0TB10ZZ Excision of Left Kidney, Open Approach (ICD-10-PCS; principal; 2024-09-03 12:47)
PROC: 0YU60JZ Supplement Left Inguinal Region with Synthetic Substitute, Open Approach (ICD-10-PCS; 2024-09-03 12:47)
DX: C64.2 Malignant neoplasm of left kidney, except renal pelvis (principal); J69.0 Pneumonitis due to inhalation of food and vomit; K40.30 Unilateral inguinal hernia, with obstruction, without gangrene, not specified as recurrent; N13.8 Other obstructive and reflux uropathy; J44.1 Chronic obstructive pulmonary disease with (acute) exacerbation; N40.1 Benign prostatic hyperplasia with lower urinary tract symptoms; R16.0 Hepatomegaly, not elsewhere classified; D18.09 Hemangioma of other sites; G89.18 Other acute postprocedural pain; N28.9 Disorder of kidney and ureter, unspecified; M19.90 Unspecified osteoarthritis, unspecified site; D64.9 Anemia, unspecified; Z72.0 Tobacco use
CPT/HCPCS: 36415; 71045; 71046; 80048; 80053; 82948; 83735; 83880; 84100; 85007; 85025; 85027; 86850; 86900; 86920; 88304; 88305; 88307; 88311; 88329; 88331; 88342; 93306; 94799; C1781; J0690; J1200; J1938; J2003; J2270; J2405; J2470; J2543; J7030; J7799